=== PATIENT | female | born 1935 | race Caucasian/White ===

== ENCOUNTER → 2016-10-27 | Outpatient (CLI) | payer OTHER ==
[~2016-10-27] MED LIST: ALLO100T PO; ATEN100T OR; FLU05NSL; GLIP-115 PO; LANTUS SC; LISI40TA OR; LORA-622 PO; METF-312 OR; NIFE10CA3 OR; NOR5T PO
[2016-10-27 10:09] LABS: Basophils # (auto) 0 uL; Basophils % (auto) 0.4 % (0.0-2.0); Eosinophils # (auto) 0.3 uL; Eosinophils % (auto) 4.2 % (0.0-7.0); Hematocrit 40.5 % (36.0-46.0); Hemoglobin 13.1 g/dL (12.2-16.2); Lymphocytes # (auto) 2.2 uL; Lymphocytes % (auto) 35.8 % (10.0-50.0); Mean Corpuscular Hemoglobin 30.3 pg (28.0-32.0); Mean Corpuscular Hgb Conc. 32.5 g/dL (32.0-36.0); Mean Corpuscular Volume 93.1 fL (80.0-100.0); Monocytes # (auto) 0.5 uL; Monocytes % (auto) 8.3 % (0.0-12.0); Neutrophils # (auto) 3.2 uL; Neutrophils % (auto) 51.3 % (37.0-80.0); Platelet Count (auto) 271 10^3/uL (140-450); Red Cell Distribution Width 14.7 % (11.6-16.0); White Blood Cell 6.2 10^3/uL (4.4-10.8)
[2016-10-27 10:54] LABS: Albumin 3.9 g/dL (3.4-5.0); BUN/Creatinine Ratio 23.3; Bilirubin, Total 0.4 mg/dL (0.2-1.0); Total Protein 6.9 g/dL (6.4-8.2)
[2016-10-27 11:06] LABS: Urine Bilirubin Negative (Negative); Urine Color Yellow (Yellow); Urine Glucose Normal (Normal); Urine Ketone Negative (Negative); Urine Nitrite Negative (Negative); Urine RBC 109 /hpf (0 - 4); Urine Squamous Epithelial Cell FEW /hpf (<5); Urine Urobilinogen Normal (Negative); Urine WBC Clumps PRESENT /hpf (None Seen); Urine pH 5.5 (5.0-8.0)
[2016-10-27 11:44] LABS: Urine Blood 2+ /uL (Negative)
== END | disposition home or self-care (01) ==
LOC: LAB 08:22
PROVIDERS: ATTEND Internal Medicine
DX: Z00.00 Encounter for general adult medical examination without abnormal findings (principal); E55.9 Vitamin D deficiency, unspecified
CPT/HCPCS: 36415; 80053; 80061; 81001; 82043; 82306; 83036; 85025; 85049

== ENCOUNTER → 2016-11-14 | Outpatient (CLI) | payer OTHER | END | disposition home or self-care (01) | LOC: LAB 10:06 | PROVIDERS: ATTEND Internal Medicine | DX: Z00.00 Encounter for general adult medical examination without abnormal findings (principal); E55.9 Vitamin D deficiency, unspecified | CPT/HCPCS: 82270 ==

== ENCOUNTER → 2016-12-25 | Outpatient (CLI) | payer OTHER ==
[2016-12-25 11:45] LABS: Albumin 3.9 g/dL (3.4-5.0); BUN/Creatinine Ratio 24.8; Bilirubin, Total 0.4 mg/dL (0.2-1.0); Calcium 9.3 mg/dL (8.5-10.1); Magnesium 2.3 mg/dL (1.6-2.6); Potassium 4.7 mmol/L (3.5-5.1)
== END | disposition home or self-care (01) ==
LOC: LAB 09:48
PROVIDERS: ATTEND Internal Medicine
DX: I10 Essential (primary) hypertension (principal); E78.2 Mixed hyperlipidemia; E11.21 Type 2 diabetes mellitus with diabetic nephropathy; E11.69 Type 2 diabetes mellitus with other specified complication
CPT/HCPCS: 36415; 80053; 83735; 84443

== ENCOUNTER → 2017-01-01 | Outpatient (CLI) | payer OTHER ==
[2017-01-01 18:45] LABS: Urine Bilirubin Negative (Negative); Urine Color PINK (Yellow); Urine Ketone Negative (Negative); Urine Nitrite Negative (Negative); Urine RBC 1112 /hpf (0 - 4); Urine Squamous Epithelial Cell FEW /hpf (<5); Urine Urobilinogen Normal (Negative); Urine pH 5.5 (5.0-8.0)
[2017-01-01 18:49] LABS: Urine Blood 3+ /uL (Negative); Urine Glucose 1+ mg/dL (Normal)
== END | disposition home or self-care (01) ==
LOC: LAB 15:29
PROVIDERS: ATTEND Internal Medicine
DX: I10 Essential (primary) hypertension (principal); E78.2 Mixed hyperlipidemia; E11.21 Type 2 diabetes mellitus with diabetic nephropathy; E11.69 Type 2 diabetes mellitus with other specified complication
CPT/HCPCS: 81001

== ENCOUNTER → 2017-01-08 | Outpatient (CLI) | payer OTHER | END | disposition home or self-care (01) | LOC: LAB 14:38 | PROVIDERS: ATTEND Internal Medicine | DX: N39.0 Urinary tract infection, site not specified (principal) | CPT/HCPCS: 87086 ==

== ENCOUNTER → 2017-01-09 | Outpatient (CLI) | payer OTHER | END | disposition home or self-care (01) | LOC: XYW 08:55 | PROVIDERS: ATTEND Internal Medicine | DX: I08.3 Combined rheumatic disorders of mitral, aortic and tricuspid valves (principal) | CPT/HCPCS: 93306 ==

== ENCOUNTER 2017-01-14 12:32 | Inpatient (IN) | payer OTHER ==
[~2017-01-14] VITALS: Ht 170.2 cm; Wt 72.8 kg
[~2017-01-14 12:32] MED LIST changes: -LISI40TA OR; +LISI40TA PO; -METF-312 OR; +METF-312 PO; -NIFE10CA3 OR; +NIFE10CA3 PO
[2017-01-14] MEDS ORDERED: ASPirin 81 mg TAB ONE (13:07)
[2017-01-14] MEDS ORDERED: SODIUM CHLORIDE 0.9% 250 ML IV ONE (13:15)
[2017-01-14 13:22] LABS: Basophils # (auto) 0 uL; Basophils % (auto) 0.2 % (0.0-2.0); Eosinophils # (auto) 0.1 uL; Eosinophils % (auto) 1.4 % (0.0-7.0); Hematocrit 41.9 % (36.0-46.0); Hemoglobin 14.2 g/dL (12.2-16.2); Lymphocytes # (auto) 2.1 uL; Lymphocytes % (auto) 25.4 % (10.0-50.0); Mean Corpuscular Hemoglobin 30.9 pg (28.0-32.0); Mean Corpuscular Hgb Conc. 33.8 g/dL (32.0-36.0); Mean Corpuscular Volume 91.6 fL (80.0-100.0); Mean Platelet Volume 8.3 fL (7.4-10.4); Monocytes # (auto) 0.5 uL; Monocytes % (auto) 6.5 % (0.0-12.0); Neutrophils # (auto) 5.6 uL; Neutrophils % (auto) 66.5 % (37.0-80.0); Platelet Count (auto) 315 10^3/uL (140-450); White Blood Cell 8.5 10^3/uL (4.4-10.8)
[2017-01-14] MEDS ORDERED: ASPirin 81 mg TAB PO ONE (13:30)
[2017-01-14 13:54] LABS: Albumin 4.3 g/dL (3.4-5.0); Alkaline Phosphatase 116 U/L (45-117); Anion Gap 12 (5-15); Aspartate Aminotransferase 19 U/L (15-37); BUN/Creatinine Ratio 25.5; Bilirubin, Total 0.3 mg/dL (0.2-1.0); Blood Urea Nitrogen 28 mg/dL (7-18); Calcium 9.4 mg/dL (8.5-10.1); Carbon Dioxide 20 mmol/L (21-32); Chloride 111 mmol/L (98-107); GFR African American 62 mL/min; GFR Non-African American 51 mL/min; Glucose 155 mg/dL (74-106); Magnesium 1.6 mg/dL (1.6-2.6); Potassium 4.5 mmol/L (3.5-5.1); Sodium 143 mmol/L (136-145); Total Protein 7.6 g/dL (6.4-8.2)
[2017-01-14] MEDS ORDERED: ALUM & MAG HYDROX-SIMETH LIQ(MAALOX) 30 ML PO PRN (16:30)
[2017-01-14] MEDS ORDERED: ONDANSETRON HCL 4 MG/2 ML VIAL IV PRN (16:30)
[2017-01-14] MEDS ORDERED: MORPHINE SULF INJ 2 MG/ML SYRINGE 1ML IV PRN ×2 (16:30)
[2017-01-14] MEDS ORDERED: ZOLPIDEM TARTRATE 5 MG TAB PO PRN (16:30)
[2017-01-14] MEDS ORDERED: LORazepam 0.5 MG TAB PO PRN (16:30)
[2017-01-14] MEDS ORDERED: NITROGLYCERIN 0.4 MG SL TAB SL PRN ×2 (16:30)
[2017-01-14] MEDS ORDERED: DEXTROSE (50%) 50ML SYRG IV PRN (16:30)
[2017-01-14] MEDS ORDERED: ACETAMINOPHEN 325 MG TAB PO PRN (16:30)
[2017-01-14] MEDS ORDERED: ALLOPURINOL 100 MG TAB PO ONE (16:45)
[2017-01-14] MEDS ORDERED: CHOLECALCIFEROL (VITD3) 1,000 UNIT TAB PO ONE (16:45)
[2017-01-14] MEDS ORDERED: NIFEdipine ER 30 MG TAB PO ONE (16:45)
[2017-01-14] MEDS ORDERED: glipiZIDE 5 MG TAB PO ONE (16:45)
[2017-01-14] MEDS ORDERED: LISINOPRIL 20 MG TAB PO ONE (16:45)
[2017-01-14 16:56] LABS: Urine Bilirubin Negative (Negative); Urine Blood Negative /uL (Negative); Urine Color Yellow (Yellow); Urine Glucose Normal (Normal); Urine Hyaline Cast FEW /lpf (0 - 2); Urine Ketone Negative (Negative); Urine Mucus FEW (None Seen); Urine Nitrite Negative (Negative); Urine RBC 1 /hpf (0 - 4); Urine Squamous Epithelial Cell FEW /hpf (<5); Urine Urobilinogen Normal (Negative)
[2017-01-14 17:06] LABS: B-Type Natriuretic Peptide 87.13 pg/mL (0-100); Temperature: 23.4 C (20.0-25.0)
[2017-01-14] MEDS: DOCUSATE SOD 100 MG CAP PO SCH (17:36)
[2017-01-14] MEDS: InsuLIN REG 1unit/0.01ml Soln (100units/ml) SC SCH ×2 (17:38→21:53)
[2017-01-14] MEDS: ACCU-CHEK COMFORT CURVE STRIP VI SCH ×2 (17:38→21:53)
[2017-01-14 17:50] VITALS: BP 132/69
[2017-01-14] MEDS ORDERED: INSLANTI SC (18:31)
[2017-01-14] MEDS ORDERED: ATOR10TA PO (18:33)
[2017-01-14] MEDS ORDERED: TRAV0.00 EACHEYE (18:33)
[2017-01-14] MEDS ORDERED: FENO54TA4 PO (18:33)
[2017-01-14 21:48] VITALS: BP 124/64
[2017-01-14] MEDS: SODIUM CHLOR 0.9% PF (SALINE LOCK) 10ML VIAL IV SCH (21:52)
[2017-01-14] MEDS: SULFAMETHOX W/TRIMETH(800/160MG) DS TAB PO SCH (21:52)
[2017-01-14] MEDS: ATENOLOL 50 MG TAB PO SCH (21:53)
[2017-01-14] MEDS ORDERED: ATORVASTATIN 20 MG TAB PO SCH (22:00)
[2017-01-15 04:44] VITALS: BP 112/58
[2017-01-15] MEDS: SODIUM CHLOR 0.9% PF (SALINE LOCK) 10ML VIAL IV SCH (05:46)
[2017-01-15] MEDS: InsuLIN REG 1unit/0.01ml Soln (100units/ml) SC SCH ×2 (06:36→12:27)
[2017-01-15] MEDS: ACCU-CHEK COMFORT CURVE STRIP VI SCH ×2 (06:36→12:28)
[2017-01-15] MEDS ORDERED: INSULIN DETEMIR(LEVEMIR) 1unit/0.01ml Soln (100units/ml) SC SCH (07:00)
[2017-01-15] MEDS ORDERED: glipiZIDE 5 MG TAB PO SCH (07:00)
[2017-01-15 07:06] LABS: Albumin 3.3 g/dL (3.4-5.0); Alkaline Phosphatase 84 U/L (45-117); Anion Gap 9 (5-15); Aspartate Aminotransferase 16 U/L (15-37); BUN/Creatinine Ratio 26.6; Bilirubin, Total 0.4 mg/dL (0.2-1.0); Blood Urea Nitrogen 25 mg/dL (7-18); Calcium 8.6 mg/dL (8.5-10.1); Carbon Dioxide 23 mmol/L (21-32); Chloride 111 mmol/L (98-107); Cholesterol 221 mg/dL (< 200); GFR African American 74 mL/min; GFR Non-African American 61 mL/min; Glucose 104 mg/dL (74-106); HDL Cholesterol 39 mg/dL (40-59); LDL Cholesterol 156 mg/dL (< 100); Magnesium 1.6 mg/dL (1.6-2.6); Potassium 4.2 mmol/L (3.5-5.1); Sodium 143 mmol/L (136-145); Total Protein 6.2 g/dL (6.4-8.2); Triglycerides 217 mg/dL (< 150)
[2017-01-15 07:24] LABS: Basophils # (auto) 0 uL; Basophils % (auto) 0.4 % (0.0-2.0); Eosinophils # (auto) 0.2 uL; Eosinophils % (auto) 3.2 % (0.0-7.0); Hematocrit 36.1 % (36.0-46.0); Hemoglobin 12.4 g/dL (12.2-16.2); Lymphocytes # (auto) 2.1 uL; Lymphocytes % (auto) 27.7 % (10.0-50.0); Mean Corpuscular Hemoglobin 31.3 pg (28.0-32.0); Mean Corpuscular Hgb Conc. 34.4 g/dL (32.0-36.0); Mean Corpuscular Volume 91.1 fL (80.0-100.0); Monocytes # (auto) 0.7 uL; Monocytes % (auto) 9.5 % (0.0-12.0); Neutrophils # (auto) 4.5 uL; Neutrophils % (auto) 59.2 % (37.0-80.0); Platelet Count (auto) 288 10^3/uL (140-450); Red Cell Distribution Width 14.6 % (11.6-16.0); White Blood Cell 7.5 10^3/uL (4.4-10.8)
[2017-01-15 09:17] VITALS: BP 127/62
[2017-01-15] MEDS: DOCUSATE SOD 100 MG CAP PO SCH (09:46)
[2017-01-15] MEDS: SULFAMETHOX W/TRIMETH(800/160MG) DS TAB PO SCH (09:46)
[2017-01-15] MEDS: ATENOLOL 50 MG TAB PO SCH (09:55)
[2017-01-15] MEDS ORDERED: LISINOPRIL 20 MG TAB PO SCH (10:00)
[2017-01-15] MEDS ORDERED: NIFEdipine ER 30 MG TAB PO SCH (10:00)
[2017-01-15] MEDS ORDERED: CHOLECALCIFEROL (VITD3) 1,000 UNIT TAB PO SCH (10:00)
[2017-01-15] MEDS ORDERED: ALLOPURINOL 100 MG TAB PO SCH (10:00)
[2017-01-15] MEDS ORDERED: ASPirin 81 mg TAB PO SCH (10:00)
[2017-01-15] MEDS ORDERED: FENOFIBRATE 48MG PO SCH (10:00)
[2017-01-15] MEDS ORDERED: CLOPIDOGREL BISULFATE 75 MG TAB PO SCH (10:00)
[2017-01-15 12:08] VITALS: BP 127/59
[2017-01-15 13:50] VITALS: BP 126/82
[2017-01-15] MEDS ORDERED: TRAVATAN Z EYE EACHEYE SCH (22:00)
== END 2017-01-15 15:25 | disposition home or self-care (01) | DRG 312 ==
LOC: ER 12:32 → TELE 12:33 → TELE-EAST 18:59
PROVIDERS: ADMIT Internal Medicine; ATTEND Family Medicine
DX: I95.1 Orthostatic hypotension (principal); D68.69 Other thrombophilia; I48.92 Unspecified atrial flutter; R07.89 Other chest pain; Z96.652 Presence of left artificial knee joint; E10.21 Type 1 diabetes mellitus with diabetic nephropathy; E10.22 Type 1 diabetes mellitus with diabetic chronic kidney disease; E78.5 Hyperlipidemia, unspecified; I12.9 Hypertensive chronic kidney disease with stage 1 through stage 4 chronic kidney disease, or unspecified chronic kidney disease; I48.91 Unspecified atrial fibrillation; N18.3 Chronic kidney disease, stage 3 (moderate); Z83.3 Family history of diabetes mellitus; Z88.5 Allergy status to narcotic agent; Z88.0 Allergy status to penicillin; Z88.8 Allergy status to other drugs, medicaments and biological substances; Z79.4 Long term (current) use of insulin; Z90.710 Acquired absence of both cervix and uterus; Z90.89 Acquired absence of other organs; Z98.49 Cataract extraction status, unspecified eye; Z79.82 Long term (current) use of aspirin
CPT/HCPCS: 36415; 71020; 80053; 80061; 81001; 82962; 83036; 83735; 83880; 84443; 84484; 85025; 87086; 93005; 96360; J1815

== ENCOUNTER 2017-01-21 02:19 | Inpatient (IN) | payer OTHER ==
[~2017-01-21] VITALS: Ht 170.2 cm; Wt 75.9 kg
[~2017-01-21 02:19] MED LIST changes: -ATEN100T OR; +ATOR10TA PO; +FENO54TA4 PO; -FLU05NSL; +INSLANTI SC; -LANTUS SC; -LORA-622 PO; -NOR5T PO; +TRAV0.00 EACHEYE
[2017-01-21 03:13] LABS: Basophils # (auto) 0 uL; Basophils % (auto) 0.4 % (0.0-2.0); Eosinophils # (auto) 0.3 uL; Eosinophils % (auto) 3.5 % (0.0-7.0); Hematocrit 40.2 % (36.0-46.0); Hemoglobin 13.3 g/dL (12.2-16.2); Lymphocytes # (auto) 3.6 uL; Lymphocytes % (auto) 46.8 % (10.0-50.0); Mean Corpuscular Hemoglobin 30.7 pg (28.0-32.0); Mean Corpuscular Hgb Conc. 33.2 g/dL (32.0-36.0); Mean Corpuscular Volume 92.5 fL (80.0-100.0); Mean Platelet Volume 8.9 fL (7.4-10.4); Monocytes # (auto) 0.7 uL; Monocytes % (auto) 8.6 % (0.0-12.0); Neutrophils # (auto) 3.1 uL; Neutrophils % (auto) 40.7 % (37.0-80.0); Platelet Count (auto) 299 10^3/uL (140-450); Red Cell Distribution Width 14.6 % (11.6-16.0); White Blood Cell 7.6 10^3/uL (4.4-10.8)
[2017-01-21 03:28] LABS: INR 0.94 (0.9-1.15); Partial Thromboplastin Time 25.2 sec (22.64-33.71); Prothrombin Time 10.1 sec (9.37-12.3)
[2017-01-21 03:32] LABS: Albumin 3.7 g/dL (3.4-5.0); Anion Gap 12 (5-15); Aspartate Aminotransferase 15 U/L (15-37); BUN/Creatinine Ratio 31.3; Blood Urea Nitrogen 36 mg/dL (7-18); Carbon Dioxide 21 mmol/L (21-32); Chloride 108 mmol/L (98-107); GFR African American 59 mL/min; GFR Non-African American 48 mL/min; Glucose 128 mg/dL (74-106); Magnesium 2.3 mg/dL (1.6-2.6); Potassium 4.3 mmol/L (3.5-5.1); Sodium 141 mmol/L (136-145)
[2017-01-21 03:37] LABS: Alkaline Phosphatase 128 U/L (45-117); Bilirubin, Total 0.3 mg/dL (0.2-1.0); Total Protein 6.9 g/dL (6.4-8.2)
[2017-01-21 03:40] LABS: B-Type Natriuretic Peptide 96.5 pg/mL (0-100); Temperature: 21.4 C (20.0-25.0)
[2017-01-21] MEDS: SODIUM CHLORIDE 0.9% 1,000 ML IV SCH ×2 (05:20→22:31)
[2017-01-21] MEDS ORDERED: ONDANSETRON HCL 4 MG/2 ML VIAL IV PRN (05:30)
[2017-01-21] MEDS ORDERED: MORPHINE SULF INJ 2 MG/ML SYRINGE 1ML IV PRN ×2 (05:30)
[2017-01-21] MEDS ORDERED: HYDROcodone-ACET 5/325MG TAB PO PRN (05:30)
[2017-01-21] MEDS ORDERED: NITROGLYCERIN 0.4 MG SL TAB SL PRN (05:30)
[2017-01-21] MEDS ORDERED: DIPHENOXYLATE W/ATROPINE 2.5 MG TAB PO ONE (05:45)
[2017-01-21 06:35] VITALS: BP 137/63
[2017-01-21 07:28] VITALS: BP 137/63
[2017-01-21] MEDS: NIFEdipine ER 30 MG TAB PO SCH (09:59)
[2017-01-21] MEDS: ALLOPURINOL 100 MG TAB PO SCH (09:59)
[2017-01-21] MEDS ORDERED: NIFEdipine 10 MG CAP PO SCH (10:00)
[2017-01-21] MEDS ORDERED: TRAVOPROST 0.004% EACHEYE SCH (10:00)
[2017-01-21] MEDS: [UNRECOGNIZED DRUG - OTHER] PO SCH (10:00)
[2017-01-21] MEDS: FENOFIBRATE 54 MG PO SCH (10:00)
[2017-01-21] MEDS ORDERED: FENOFIBRATE 54 MG PO SCH (10:00)
[2017-01-21 11:00] VITALS: BP 122/72
[2017-01-21 12:48] LABS: Urine Bilirubin Negative (Negative); Urine Blood Negative /uL (Negative); Urine Color Colorless (Yellow); Urine Ketone Negative (Negative); Urine Nitrite Negative (Negative); Urine RBC <1 /hpf (0 - 4); Urine Urobilinogen Normal (Negative); Urine pH 6.5 (5.0-8.0)
[2017-01-21 12:49] LABS: Urine Glucose 3+ mg/dL (Normal)
[2017-01-21 16:00] VITALS: BP 128/63
[2017-01-21] MEDS ORDERED: DEXTROSE (50%) 50ML SYRG IV PRN (16:45)
[2017-01-21] MEDS: ACCU-CHEK COMFORT CURVE STRIP VI SCH ×2 (18:10→22:00)
[2017-01-21] MEDS: InsuLIN REG 1unit/0.01ml Soln (100units/ml) SC SCH ×2 (18:14→22:41)
[2017-01-21 22:00] VITALS: BP 115/62
[2017-01-21] MEDS ORDERED: LISINOPRIL 20 MG TAB PO SCH (22:00)
[2017-01-21] MEDS: ATORVASTATIN 20 MG TAB PO SCH (22:30)
[2017-01-22] VITALS (7 sets, daily range): BP systolic 115–138; BP diastolic 61–73
[2017-01-22] MEDS: InsuLIN REG 1unit/0.01ml Soln (100units/ml) SC SCH ×4 (05:57→22:15)
[2017-01-22] MEDS: ACCU-CHEK COMFORT CURVE STRIP VI SCH ×4 (05:57→22:14)
[2017-01-22 06:05] LABS: Basophils # (auto) 0 uL; Basophils % (auto) 0.3 % (0.0-2.0); Eosinophils # (auto) 0.3 uL; Eosinophils % (auto) 3.6 % (0.0-7.0); Hematocrit 42.3 % (36.0-46.0); Hemoglobin 13.8 g/dL (12.2-16.2); Lymphocytes # (auto) 2.9 uL; Lymphocytes % (auto) 40.9 % (10.0-50.0); Mean Corpuscular Hemoglobin 30.5 pg (28.0-32.0); Mean Corpuscular Hgb Conc. 32.7 g/dL (32.0-36.0); Mean Corpuscular Volume 93.1 fL (80.0-100.0); Mean Platelet Volume 8.8 fL (7.4-10.4); Monocytes # (auto) 0.7 uL; Monocytes % (auto) 10.1 % (0.0-12.0); Neutrophils # (auto) 3.2 uL; Neutrophils % (auto) 45.1 % (37.0-80.0); Platelet Count (auto) 301 10^3/uL (140-450); Red Cell Distribution Width 15.2 % (11.6-16.0); White Blood Cell 7.1 10^3/uL (4.4-10.8)
[2017-01-22 06:41] LABS: Albumin 3.5 g/dL (3.4-5.0); BUN/Creatinine Ratio 24.3; Bilirubin, Total 0.4 mg/dL (0.2-1.0); Potassium 4.3 mmol/L (3.5-5.1); Total Protein 6.8 g/dL (6.4-8.2)
[2017-01-22] MEDS: [UNRECOGNIZED DRUG - OTHER] PO SCH (09:35)
[2017-01-22] MEDS: FENOFIBRATE 54 MG PO SCH (09:35)
[2017-01-22] MEDS: NIFEdipine ER 30 MG TAB PO SCH (09:39)
[2017-01-22] MEDS: ALLOPURINOL 100 MG TAB PO SCH (09:39)
[2017-01-22] MEDS ORDERED: METOPROLOL TARTRATE 25 MG TAB PO ONE (10:30)
[2017-01-22] MEDS ORDERED: APIXABAN 5 MG TAB PO SCH (11:00)
[2017-01-22] MEDS ORDERED: LATANOPROST 0.005 % OPTH(EYE) SOL 2.5ML EACHEYE SCH (22:00)
[2017-01-22] MEDS ORDERED: LISINOPRIL 20 MG TAB PO SCH (22:00)
[2017-01-22] MEDS: ATORVASTATIN 20 MG TAB PO SCH (22:24)
[2017-01-22] MEDS: METOPROLOL TARTRATE 25 MG TAB PO SCH (22:25)
[2017-01-22] MEDS: TRAVOPROST 0.004% EACHEYE SCH (22:26)
[2017-01-22] MEDS: EYE EACHEYE SCH (22:26)
[2017-01-23] MEDS ORDERED: TEMAZEPAM 15 MG CAP PO ONE (00:45)
[2017-01-23 05:00] VITALS: BP 121/66
[2017-01-23] MEDS: ACCU-CHEK COMFORT CURVE STRIP VI SCH ×4 (05:39→21:57)
[2017-01-23] MEDS: InsuLIN REG 1unit/0.01ml Soln (100units/ml) SC SCH ×4 (05:56→21:57)
[2017-01-23 07:11] LABS: BUN/Creatinine Ratio 23.4; Calcium 9.2 mg/dL (8.5-10.1); Potassium 4.4 mmol/L (3.5-5.1)
[2017-01-23 08:00] VITALS: BP 114/66
[2017-01-23 08:49] VITALS: BP 114/66
[2017-01-23] MEDS: FENOFIBRATE 48 MG TAB PO SCH (09:30)
[2017-01-23] MEDS: ALLOPURINOL 100 MG TAB PO SCH (09:32)
[2017-01-23] MEDS: METOPROLOL TARTRATE 25 MG TAB PO SCH ×2 (09:32→21:57)
[2017-01-23] MEDS ORDERED: IOHEXOL 350 MG/ML 100ML IJ ONE (10:46)
[2017-01-23] MEDS ORDERED: LIDOCAINE 2%HCL (LOCAL ANESTH.) INJ 20ML MDV ONE (10:46)
[2017-01-23] MEDS ORDERED: MIDAZOLAM HCL 1MG/1ML-2 ML VIAL ONE (11:30)
[2017-01-23] MEDS ORDERED: fentaNYL CITRATE 100 MCG/2 ML VL ONE (11:30)
[2017-01-23] MEDS ORDERED: SODIUM CHL 0.9% 0 ML ONE (11:30)
[2017-01-23] MEDS ORDERED: ANGIOMAX 250 MG VIAL IV ONE (11:30)
[2017-01-23] MEDS ORDERED: VERAPAMIL 2.5MG/ML INJ 2ML VIAL IV ONE (11:58)
[2017-01-23] MEDS ORDERED: HEPARIN 1,000 UNITS/ml 1ML VIAL ONE (12:03)
[2017-01-23 17:00] VITALS: BP 125/82
[2017-01-23 20:00] VITALS: BP 132/81
[2017-01-23] MEDS: ATORVASTATIN 20 MG TAB PO SCH (21:56)
[2017-01-23] MEDS: TRAVOPROST 0.004% EACHEYE SCH (21:57)
[2017-01-23] MEDS: EYE EACHEYE SCH (21:57)
[2017-01-23 22:00] VITALS: BP 132/81
[2017-01-23] MEDS ORDERED: LISINOPRIL 20 MG TAB PO SCH (22:00)
[2017-01-24 05:00] VITALS: BP 113/65
[2017-01-24] MEDS: ACCU-CHEK COMFORT CURVE STRIP VI SCH ×4 (06:07→21:32)
[2017-01-24] MEDS: InsuLIN REG 1unit/0.01ml Soln (100units/ml) SC SCH ×4 (06:07→21:33)
[2017-01-24 07:05] LABS: Calcium 8.8 mg/dL (8.5-10.1); Potassium 4.3 mmol/L (3.5-5.1)
[2017-01-24 07:09] LABS: BUN/Creatinine Ratio 22.6
[2017-01-24 09:05] VITALS: BP 129/72
[2017-01-24] MEDS: ALLOPURINOL 100 MG TAB PO SCH (09:36)
[2017-01-24] MEDS: LISINOPRIL 10 MG TAB PO SCH (09:36)
[2017-01-24] MEDS: FENOFIBRATE 48 MG TAB PO SCH (09:38)
[2017-01-24] MEDS: METOPROLOL TARTRATE 25 MG TAB PO SCH ×2 (09:38→21:30)
[2017-01-24 17:01] VITALS: BP 114/73
[2017-01-24] MEDS: EYE EACHEYE SCH (21:31)
[2017-01-24] MEDS: ATORVASTATIN 20 MG TAB PO SCH (21:31)
[2017-01-24] MEDS: TRAVOPROST 0.004% EACHEYE SCH (21:31)
[2017-01-24 22:00] VITALS: BP 139/66
[2017-01-25] VITALS (16 sets, daily range): BP systolic 107–159; BP diastolic 52–99
[2017-01-25] MEDS: ACCU-CHEK COMFORT CURVE STRIP VI SCH ×4 (06:47→22:00)
[2017-01-25] MEDS: InsuLIN REG 1unit/0.01ml Soln (100units/ml) SC SCH ×4 (06:48→22:47)
[2017-01-25] MEDS: FENOFIBRATE 48 MG TAB PO SCH (09:34)
[2017-01-25] MEDS: LISINOPRIL 10 MG TAB PO SCH (09:35)
[2017-01-25] MEDS: ALLOPURINOL 100 MG TAB PO SCH (09:35)
[2017-01-25] MEDS: METOPROLOL TARTRATE 25 MG TAB PO SCH ×2 (09:35→22:43)
[2017-01-25] MEDS ORDERED: ASPI-498 PO (10:23)
[2017-01-25] MEDS ORDERED: MUPIROCIN 2% OINT 22GM TOP SCH (21:00)
[2017-01-25] MEDS ORDERED: ASCORBIC ACID 500 MG TAB PO ONE (21:00)
[2017-01-25] MEDS: TRAVOPROST 0.004% EACHEYE SCH (22:00)
[2017-01-25] MEDS: EYE EACHEYE SCH (22:00)
[2017-01-25] MEDS ORDERED: CHLORHEXIDINE 0.12% ORAL rinse 473ML MT ONE (22:27)
[2017-01-25] MEDS: ATORVASTATIN 20 MG TAB PO SCH (22:42)
[2017-01-26] VITALS (53 sets, daily range): BP systolic 22–168; BP diastolic 7–89
[2017-01-26] MEDS ORDERED: CHLORHEXIDINE 4% TOPICAL soln 473ML TOP ONE (03:00)
[2017-01-26 04:03] LABS: INR 0.99 (0.9-1.15); Partial Thromboplastin Time 24.3 sec (22.64-33.71); Prothrombin Time 10.7 sec (9.37-12.3)
[2017-01-26 04:17] LABS: BUN/Creatinine Ratio 28.4; Calcium 8.7 mg/dL (8.5-10.1); Potassium 4.2 mmol/L (3.5-5.1)
[2017-01-26 04:37] LABS: Basophils # (auto) 0 uL; Basophils % (auto) 0.4 % (0.0-2.0); Eosinophils # (auto) 0.2 uL; Eosinophils % (auto) 2.9 % (0.0-7.0); Hematocrit 42.9 % (36.0-46.0); Hemoglobin 14.1 g/dL (12.2-16.2); Lymphocytes # (auto) 3.1 uL; Lymphocytes % (auto) 38.2 % (10.0-50.0); Mean Corpuscular Hemoglobin 30.6 pg (28.0-32.0); Mean Corpuscular Volume 92.8 fL (80.0-100.0); Mean Platelet Volume 8.8 fL (7.4-10.4); Monocytes # (auto) 0.8 uL; Monocytes % (auto) 9.7 % (0.0-12.0); Neutrophils % (auto) 48.8 % (37.0-80.0); Platelet Count (auto) 290 10^3/uL (140-450); Red Cell Distribution Width 14.9 % (11.6-16.0); White Blood Cell 8.1 10^3/uL (4.4-10.8)
[2017-01-26] MEDS: InsuLIN REG 1unit/0.01ml Soln (100units/ml) SC SCH (05:49)
[2017-01-26] MEDS ORDERED: CHLORHEXIDINE 0.12% ORAL rinse 473ML MT ONE (06:00)
[2017-01-26] MEDS ORDERED: NEOMYCIN-BACITRACIN-POLYM 15GM TOP OINT TOP ONE (06:55)
[2017-01-26] MEDS ORDERED: ceFAZolin 1GM VL ONE (06:55)
[2017-01-26] MEDS ORDERED: PAPAVERINE HCL 60 MG/2 ML 2ML VIAL ONE (06:56)
[2017-01-26] MEDS ORDERED: HEPARIN 1,000 UNITS/ml 1ML VIAL ONE (06:56)
[2017-01-26] MEDS ORDERED: ACCU-CHEK COMFORT CURVE STRIP VI ONE (07:00)
[2017-01-26] MEDS ORDERED: VASOPRESSIN 50 UNITS in SODIUM CHL 0.9% 247.5 ML IV ONE (07:00)
[2017-01-26] MEDS ORDERED: EPINEPHrine HCL 4 MG in D5W 5% 250 ML IM ONE (07:00)
[2017-01-26] MEDS ORDERED: AMINOCAPROIC ACID 10 GM in SODIUM CHL 0.9% 100 ML IV ONE (07:00)
[2017-01-26] MEDS ORDERED: PHENYLEPHRINE INJ 20 MG in SODIUM CHL 0.9% 250 ML IV ONE (07:00)
[2017-01-26] MEDS ORDERED: InsuLIN R (HUMAN) 100 UNITS in SODIUM CHL 0.9% 99 ML IV ONE (07:00)
[2017-01-26] MEDS ORDERED: AMINOCAPROIC ACID 5 GM in SODIUM CHL 0.9% 250 ML IV ONE (07:00)
[2017-01-26] MEDS ORDERED: HEPARIN 30000 UNITS in SODIUM CHLORIDE 0.9% 1000 ML IV ONE (07:00)
[2017-01-26] MEDS ORDERED: ALBUMIN 25% 200 ML IV ONE (07:45)
[2017-01-26] MEDS ORDERED: ceFAZolin 1GM/50ML D5W 50 ML IV ONE (08:00)
[2017-01-26] MEDS ORDERED: VANCOMYCIN 1GM/250ML D5W 250 ML IV ONE (08:00)
[2017-01-26] MEDS ORDERED: PLASMA-LYTE A pH7.4 5,000 ML INJ ONE (08:33)
[2017-01-26] MEDS ORDERED: ROCURONIUM 10MG/ML 10ML VIAL IV ONE ×2 (08:56→10:44)
[2017-01-26] MEDS ORDERED: CALCIUM CHLOR(10%) 100MG/ML 10ML SYRINGE IV ONE ×2 (09:07→15:59)
[2017-01-26] MEDS ORDERED: NITROGLYCERIN 50MG/250ML 250 ML IV ONE (09:07)
[2017-01-26] MEDS ORDERED: LIDOCAINE 2%HCL (LOCAL ANESTH.) INJ 20ML MDV ONE (09:17)
[2017-01-26] MEDS ORDERED: ETOMIDATE (2MG/ML) 20ML VIAL IV ONE (09:17)
[2017-01-26] MEDS ORDERED: MIDAZOLAM HCL 1MG/1ML-2 ML VIAL ONE ×2 (09:19→09:20)
[2017-01-26] MEDS ORDERED: ePHEDrine SULFATE 50 MG/ML AMP ONE (09:19)
[2017-01-26] MEDS ORDERED: DILTIAZEM HCL 25 MG/5 ML VIAL IV ONE (14:00)
[2017-01-26] MEDS ORDERED: AMIODARONE HCL (50 MG/ ML) 3 ML VIAL IV ONE (14:11)
[2017-01-26] MEDS: DILTIAZEM 125mg/125ml BAG KIT 125 ML IV SCH (14:15)
[2017-01-26] MEDS: FENOFIBRATE 48 MG TAB PO SCH (14:28)
[2017-01-26] MEDS: ALLOPURINOL 100 MG TAB PO SCH (14:28)
[2017-01-26] MEDS ORDERED: AMIODARONE HCL 900 MG in DEXTROSE 500 ML IV SCH ×2 (14:37→15:01)
[2017-01-26] MEDS ORDERED: PHENYLEPHRINE IV 250 ML IV SCH (14:51)
[2017-01-26] MEDS ORDERED: SODIUM CHLORIDE 0.9% 200 ML IV PRN (14:51)
[2017-01-26] MEDS ORDERED: INSULIN DRIP 100 UNIT/100ML 100 ML IV SCH (14:51)
[2017-01-26] MEDS ORDERED: NOREPINEPHRINE BITARTRATE 250 ML IV SCH (14:51)
[2017-01-26] MEDS ORDERED: DEXTROSE (50%) 50ML SYRG IV PRN (15:00)
[2017-01-26] MEDS ORDERED: SODIUM BICARBONATE 8.4% INJ 50ML SYRINGE IV PRN (15:00)
[2017-01-26] MEDS ORDERED: IPRATROPIUM BROM 0.5 MG/2.5ML INH SOL NEB PRN (15:00)
[2017-01-26] MEDS ORDERED: MAGNESIUM SULFATE 1GM/100ML 100 ML IV PRN (15:00)
[2017-01-26] MEDS ORDERED: AMIODARONE HCL 150 MG in D5W 5% 100 ML IV ONE (15:00)
[2017-01-26] MEDS ORDERED: METOCLOPRAMIDE HCL 5MG/ml INJ 2ml VIAL IV PRN (15:00)
[2017-01-26] MEDS ORDERED: ONDANSETRON HCL 4 MG/2 ML VIAL IV PRN (15:00)
[2017-01-26] MEDS ORDERED: MORPHINE SULFATE 4 MG/ML SYRG IV PRN (15:00)
[2017-01-26] MEDS ORDERED: DIGOXIN (250MCG/ML) 2 ML AMPULE IV ONE (15:30)
[2017-01-26] MEDS ORDERED: PHENYLEPHRINE HCL 10 MG/ML VL IV ONE (15:59)
[2017-01-26] MEDS ORDERED: AMINOCAPROIC ACID 5 GM/20 ML VL IV ONE (15:59)
[2017-01-26] MEDS ORDERED: ADENOSINE 6 MG/2 ML INJ IV ONE (15:59)
[2017-01-26] MEDS ORDERED: POTASSIUM CHL 2MEQ/ML 20ML IV ONE (15:59)
[2017-01-26] MEDS ORDERED: SODIUM BICARBONATE 8.4 % INJ 50ML VIAL IV ONE (15:59)
[2017-01-26] MEDS ORDERED: MAGNESIUM SULF 50% 40 MEQ/10 ML VL IV ONE (15:59)
[2017-01-26] MEDS ORDERED: MANNITOL 20 % (20GM/100ML) SOLN 500ML IV ONE (15:59)
[2017-01-26] MEDS ORDERED: LIDOCAINE HCL 100 MG/5ML (2%) SYRG INJ IV ONE (15:59)
[2017-01-26] MEDS: SODIUM CHLORIDE 0.9% 1,000 ML IV SCH ×2 (16:00→21:31)
[2017-01-26] MEDS: ACCU-CHEK COMFORT CURVE STRIP VI SCH ×8 (16:00→22:42)
[2017-01-26] MEDS: SODIUM CHLORIDE 0.9% 500 ML IV SCH (16:00)
[2017-01-26] MEDS: PROPOFOL 100 ML IV SCH (16:00)
[2017-01-26] MEDS: ALBUMIN 5% 250 ML IV PRN ×3 (16:30→21:17)
[2017-01-26] MEDS: VANCOMYCIN 1GM/250ML D5W 250 ML IV SCH (17:02)
[2017-01-26 17:40] LABS: Basophils # (auto) 0 uL; Basophils % (auto) 0.1 % (0.0-2.0); Eosinophils # (auto) 0 uL; Eosinophils % (auto) 0.1 % (0.0-7.0); Hematocrit 32.2 % (36.0-46.0); Hemoglobin 10.7 g/dL (12.2-16.2); Lymphocytes # (auto) 1.2 uL; Lymphocytes % (auto) 9.7 % (10.0-50.0); Mean Corpuscular Hemoglobin 30.8 pg (28.0-32.0); Mean Corpuscular Hgb Conc. 33.2 g/dL (32.0-36.0); Mean Corpuscular Volume 92.7 fL (80.0-100.0); Mean Platelet Volume 8.7 fL (7.4-10.4); Monocytes # (auto) 0.7 uL; Monocytes % (auto) 5.4 % (0.0-12.0); Neutrophils # (auto) 10.8 uL; Neutrophils % (auto) 84.7 % (37.0-80.0); Platelet Count (auto) 218 10^3/uL (140-450); Red Cell Distribution Width 14.8 % (11.6-16.0); White Blood Cell 12.7 10^3/uL (4.4-10.8)
[2017-01-26 17:47] LABS: INR 1.04 (0.9-1.15); Partial Thromboplastin Time 22.6 sec (22.64-33.71); Prothrombin Time 11.2 sec (9.37-12.3)
[2017-01-26] MEDS: ceFAZolin 1GM 2 GM in D5W 5% 100 ML IV SCH ×2 (17:56→22:45)
[2017-01-26] MEDS: MILRINONE 20MG/100ML 100 ML IV SCH (18:01)
[2017-01-26] MEDS: NICARDIPINE 25MG/250ML BAG KIT 250 ML IV SCH ×2 (18:02→19:51)
[2017-01-26 18:13] LABS: Albumin 3.5 g/dL (3.4-5.0); BUN/Creatinine Ratio 24.2; Calcium 9.4 mg/dL (8.5-10.1); Magnesium 3.4 mg/dL (1.6-2.6); Phosphorus 4.1 mg/dL (2.5-4.90); Potassium 4.5 mmol/L (3.5-5.1); Total Protein 5.3 g/dL (6.4-8.2)
[2017-01-26 20:30] LABS: Basophils # (auto) 0 uL; Basophils % (auto) 0.1 % (0.0-2.0); Eosinophils # (auto) 0 uL; Eosinophils % (auto) 0.1 % (0.0-7.0); Hematocrit 28.6 % (36.0-46.0); Hemoglobin 9.5 g/dL (12.2-16.2); Lymphocytes # (auto) 0.7 uL; Lymphocytes % (auto) 6.1 % (10.0-50.0); Mean Corpuscular Hemoglobin 30.9 pg (28.0-32.0); Mean Corpuscular Hgb Conc. 33.2 g/dL (32.0-36.0); Mean Corpuscular Volume 93.1 fL (80.0-100.0); Mean Platelet Volume 8.9 fL (7.4-10.4); Monocytes # (auto) 0.9 uL; Monocytes % (auto) 8.3 % (0.0-12.0); Neutrophils # (auto) 9.2 uL; Neutrophils % (auto) 85.4 % (37.0-80.0); Platelet Count (auto) 195 10^3/uL (140-450); Red Cell Distribution Width 14.6 % (11.6-16.0); White Blood Cell 10.7 10^3/uL (4.4-10.8)
[2017-01-26 20:42] LABS: BUN/Creatinine Ratio 17.4; Calcium 8.9 mg/dL (8.5-10.1); Magnesium 2.9 mg/dL (1.6-2.6); Phosphorus 2.3 mg/dL (2.5-4.90)
[2017-01-26] MEDS: AMIODARONE HCL 900 MG in DEXTROSE 500 ML IV SCH (21:01)
[2017-01-26] MEDS: TRAVOPROST 0.004% EACHEYE SCH (21:49)
[2017-01-26] MEDS: EYE EACHEYE SCH (21:49)
[2017-01-26] MEDS: CHLORHEXIDINE 0.12% ORAL rinse 473ML MT SCH (21:49)
[2017-01-26] MEDS: MORPHINE SULFATE 4 MG/ML SYRG IV PRN (22:42)
[2017-01-27] VITALS (96 sets, daily range): BP systolic 20–154; BP diastolic 7–80
[2017-01-27] MEDS: AMIODARONE HCL 900 MG in DEXTROSE 500 ML IV SCH ×2
[2017-01-27 00:12] LABS: Potassium 3.6 mmol/L (3.5-5.1)
[2017-01-27 00:14] LABS: Magnesium 2.6 mg/dL (1.6-2.6)
[2017-01-27] MEDS: NICARDIPINE 25MG/250ML BAG KIT 250 ML IV SCH ×5 (00:51→23:30)
[2017-01-27] MEDS: ACCU-CHEK COMFORT CURVE STRIP VI SCH ×15 (01:00→14:16)
[2017-01-27] MEDS: POTASSIUM CHL 20MEQ/100ML 100 ML IV PRN ×3 (02:15→09:31)
[2017-01-27] MEDS: MORPHINE SULFATE 4 MG/ML SYRG IV PRN ×3 (02:15→11:25)
[2017-01-27] MEDS: VANCOMYCIN 1GM/250ML D5W 250 ML IV SCH ×2 (03:00→17:00)
[2017-01-27] MEDS: MILRINONE 20MG/100ML 100 ML IV SCH (03:28)
[2017-01-27 04:16] LABS: Basophils # (auto) 0 uL; Eosinophils # (auto) 0 uL; Hematocrit 27.4 % (36.0-46.0); Hemoglobin 9.2 g/dL (12.2-16.2); Lymphocytes # (auto) 1.1 uL; Lymphocytes % (auto) 11.5 % (10.0-50.0); Mean Corpuscular Hemoglobin 30.9 pg (28.0-32.0); Mean Corpuscular Hgb Conc. 33.6 g/dL (32.0-36.0); Mean Corpuscular Volume 91.8 fL (80.0-100.0); Mean Platelet Volume 8.7 fL (7.4-10.4); Monocytes # (auto) 0.9 uL; Monocytes % (auto) 9.4 % (0.0-12.0); Neutrophils # (auto) 7.4 uL; Neutrophils % (auto) 79.1 % (37.0-80.0); Platelet Count (auto) 182 10^3/uL (140-450); Red Cell Distribution Width 14.6 % (11.6-16.0); White Blood Cell 9.4 10^3/uL (4.4-10.8)
[2017-01-27] MEDS: PROPOFOL 100 ML IV SCH (04:23)
[2017-01-27 04:43] LABS: BUN/Creatinine Ratio 19.8; Calcium 8.7 mg/dL (8.5-10.1); Magnesium 2.6 mg/dL (1.6-2.6); Potassium 4.7 mmol/L (3.5-5.1)
[2017-01-27 05:07] LABS: Phosphorus 3.4 mg/dL (2.5-4.90)
[2017-01-27] MEDS ORDERED: FUROSEMIDE 20 MG/2 ML VIAL IV ONE (06:30)
[2017-01-27] MEDS: ALBUMIN 5% 250 ML IV PRN (06:43)
[2017-01-27] MEDS: SODIUM CHLORIDE 0.9% 1,000 ML IV SCH ×2 (07:24→14:33)
[2017-01-27] MEDS: ceFAZolin 1GM 2 GM in D5W 5% 100 ML IV SCH ×3 (07:30→23:09)
[2017-01-27] MEDS: DIGOXIN (250MCG/ML) 2 ML AMPULE IV SCH (09:24)
[2017-01-27] MEDS: ALLOPURINOL 100 MG TAB PO SCH (09:25)
[2017-01-27] MEDS: CHLORHEXIDINE 0.12% ORAL rinse 473ML MT SCH ×2 (09:25→22:00)
[2017-01-27] MEDS: FENOFIBRATE 48 MG TAB PO SCH (09:25)
[2017-01-27] MEDS ORDERED: PANTOPRAZOLE SODIUM 40 MG/10 ML VIAL IV SCH (10:00)
[2017-01-27] MEDS ORDERED: METOCLOPRAMIDE HCL 5MG/ml INJ 2ml VIAL IV PRN (12:15)
[2017-01-27] MEDS ORDERED: ONDANSETRON HCL 4 MG/2 ML VIAL IV PRN (12:15)
[2017-01-27] MEDS ORDERED: HYDROcodone-ACET 5/325MG TAB PO PRN (12:15)
[2017-01-27] MEDS ORDERED: DEXTROSE (50%) 50ML SYRG IV PRN (12:15)
[2017-01-27] MEDS ORDERED: SENNA 8.6 MG TAB PO PRN (12:15)
[2017-01-27] MEDS ORDERED: glipiZIDE 5 MG TAB PO ONE (12:30)
[2017-01-27] MEDS ORDERED: hydrALAZINE HCL 20 MG/ML VL IV PRN ×3 (12:30→21:15)
[2017-01-27] MEDS ORDERED: FUROSEMIDE 20 MG/2 ML VIAL IV PRN ×2 (12:45→21:15)
[2017-01-27] MEDS ORDERED: MORPHINE SULFATE 4 MG/ML SYRG IV PRN (12:45)
[2017-01-27] MEDS: PROPRANOLOL HCL 1 MG/ML VIAL IV PRN ×2 (13:08→13:10)
[2017-01-27] MEDS: InsuLIN REG 1unit/0.01ml Soln (100units/ml) SC SCH ×3 (14:00→22:00)
[2017-01-27] MEDS: IPRATROPIUM BROM 0.5 MG/2.5ML INH SOL NEB SCH ×2 (14:00→18:14)
[2017-01-27] MEDS: DILTIAZEM 125mg/125ml BAG KIT 125 ML IV SCH (14:15)
[2017-01-27 14:35] LABS: Basophils # (auto) 0 uL; Eosinophils # (auto) 0 uL; Hematocrit 26.7 % (36.0-46.0); Hemoglobin 8.9 g/dL (12.2-16.2); Lymphocytes # (auto) 0.9 uL; Lymphocytes % (auto) 7.1 % (10.0-50.0); Mean Corpuscular Hemoglobin 30.8 pg (28.0-32.0); Mean Corpuscular Hgb Conc. 33.5 g/dL (32.0-36.0); Mean Platelet Volume 8.8 fL (7.4-10.4); Neutrophils # (auto) 11.1 uL; Neutrophils % (auto) 84.9 % (37.0-80.0); Platelet Count (auto) 183 10^3/uL (140-450); Red Cell Distribution Width 15.3 % (11.6-16.0); SUSPECT VIEW TRANSMISSION; White Blood Cell 13.1 10^3/uL (4.4-10.8)
[2017-01-27] MEDS: SODIUM CHLORIDE 0.9% 500 ML IV SCH (14:50)
[2017-01-27 15:05] LABS: BUN/Creatinine Ratio 16.5; Calcium 7.9 mg/dL (8.5-10.1); Magnesium 2.1 mg/dL (1.6-2.6); Phosphorus 3.7 mg/dL (2.5-4.90)
[2017-01-27] MEDS: MORPHINE SULF INJ 2 MG/ML SYRINGE 1ML IV PRN (15:29)
[2017-01-27] MEDS ORDERED: METOPROLOL TARTRATE 25 MG TAB ONE (15:41)
[2017-01-27] MEDS ORDERED: METOPROLOL TARTRATE 25 MG TAB PO ONE (15:45)
[2017-01-27] MEDS: FUROSEMIDE 40 MG TAB PO SCH (15:50)
[2017-01-27] MEDS ORDERED: hydrALAZINE HCL 20 MG/ML VL ONE (17:13)
[2017-01-27] MEDS: Boost Glucose Control 8 Ounces PO SCH (18:44)
[2017-01-27] MEDS ORDERED: CALCIUM GLUC 4.65 MEQ/10ML IV ONE (20:25)
[2017-01-27] MEDS: ATORVASTATIN 20 MG TAB PO SCH (21:30)
[2017-01-27] MEDS: DOCUSATE SOD 100 MG CAP PO SCH (21:30)
[2017-01-27] MEDS: fentaNYL CITRATE 100 MCG/2 ML VL IV PRN (21:30)
[2017-01-27] MEDS: AMIODARONE HCL 200 MG TAB PO SCH (21:30)
[2017-01-27] MEDS: METOPROLOL TARTRATE 25 MG TAB PO SCH (21:31)
[2017-01-27] MEDS: ASCORBIC ACID 500 MG TAB PO SCH (21:31)
[2017-01-27] MEDS: INSULIN DETEMIR(LEVEMIR) 1unit/0.01ml Soln (100units/ml) SC SCH (21:34)
[2017-01-27] MEDS: NITROGLYCERIN 50MG/250ML 250 ML IV SCH (21:59)
[2017-01-27] MEDS ORDERED: METOPROLOL TARTRATE 25 MG TAB PO SCH (22:00)
[2017-01-27] MEDS: OXYCODONE W/ ACETAMINOPHEN 5/325MG TABLET PO PRN (22:07)
[2017-01-27] MEDS: EYE EACHEYE SCH (22:07)
[2017-01-27] MEDS: TRAVOPROST 0.004% EACHEYE SCH (22:07)
[2017-01-28] VITALS (79 sets, daily range): BP systolic 100–176; BP diastolic 43–93
[2017-01-28] MEDS: PROPRANOLOL HCL 1 MG/ML VIAL IV PRN (01:05)
[2017-01-28] MEDS: NITROGLYCERIN 50MG/250ML 250 ML IV SCH (01:23)
[2017-01-28] MEDS: DILTIAZEM 125mg/125ml BAG KIT 125 ML IV SCH (01:27)
[2017-01-28] MEDS: NICARDIPINE 25MG/250ML BAG KIT 250 ML IV SCH ×5 (02:00→21:51)
[2017-01-28] MEDS: InsuLIN REG 1unit/0.01ml Soln (100units/ml) SC SCH ×7 (02:00→21:53)
[2017-01-28] MEDS: POTASSIUM CHL 20MEQ/100ML 100 ML IV PRN (02:22)
[2017-01-28] MEDS: VANCOMYCIN 1GM/250ML D5W 250 ML IV SCH (03:00)
[2017-01-28 03:13] LABS: Basophils # (auto) 0 uL; Basophils % (auto) 0.1 % (0.0-2.0); Eosinophils # (auto) 0 uL; Hematocrit 30.6 % (36.0-46.0); Hemoglobin 10.2 g/dL (12.2-16.2); Lymphocytes # (auto) 1.5 uL; Lymphocytes % (auto) 9.8 % (10.0-50.0); Mean Corpuscular Hemoglobin 30.8 pg (28.0-32.0); Mean Corpuscular Hgb Conc. 33.3 g/dL (32.0-36.0); Mean Corpuscular Volume 92.3 fL (80.0-100.0); Mean Platelet Volume 9.8 fL (7.4-10.4); Monocytes # (auto) 1.3 uL; Monocytes % (auto) 8.3 % (0.0-12.0); Neutrophils # (auto) 12.4 uL; Neutrophils % (auto) 81.8 % (37.0-80.0); Platelet Count (auto) 177 10^3/uL (140-450); Red Cell Distribution Width 16.3 % (11.6-16.0); SUSPECT VIEW TRANSMISSION; White Blood Cell 15.1 10^3/uL (4.4-10.8)
[2017-01-28 03:21] LABS: BUN/Creatinine Ratio 14.3; Calcium 8.2 mg/dL (8.5-10.1); Potassium 3.8 mmol/L (3.5-5.1)
[2017-01-28 04:10] LABS: Basophils # (auto) 0 uL; Eosinophils # (auto) 0 uL; Hematocrit 30.5 % (36.0-46.0); Hemoglobin 10.2 g/dL (12.2-16.2); Lymphocytes # (auto) 1.8 uL; Lymphocytes % (auto) 10.4 % (10.0-50.0); Mean Corpuscular Hemoglobin 30.6 pg (28.0-32.0); Mean Corpuscular Hgb Conc. 33.5 g/dL (32.0-36.0); Mean Corpuscular Volume 91.1 fL (80.0-100.0); Mean Platelet Volume 9.2 fL (7.4-10.4); Monocytes # (auto) 1.2 uL; Monocytes % (auto) 6.7 % (0.0-12.0); Neutrophils # (auto) 14.5 uL; Neutrophils % (auto) 82.9 % (37.0-80.0); Platelet Count (auto) 183 10^3/uL (140-450); Red Cell Distribution Width 16.1 % (11.6-16.0); White Blood Cell 17.5 10^3/uL (4.4-10.8)
[2017-01-28 04:39] LABS: Albumin 3.1 g/dL (3.4-5.0); Bilirubin, Total 0.7 mg/dL (0.2-1.0); Calcium 8.2 mg/dL (8.5-10.1); Magnesium 1.8 mg/dL (1.6-2.6); Total Protein 5.5 g/dL (6.4-8.2)
[2017-01-28 04:46] LABS: Potassium 5.8 mmol/L (3.5-5.1)
[2017-01-28] MEDS: OXYCODONE W/ ACETAMINOPHEN 5/325MG TABLET PO PRN ×2 (06:16→22:15)
[2017-01-28] MEDS: FUROSEMIDE 40 MG TAB PO SCH ×2 (06:17→17:47)
[2017-01-28 06:28] LABS: BUN/Creatinine Ratio 16.7; Calcium 8.5 mg/dL (8.5-10.1); Potassium 4.8 mmol/L (3.5-5.1)
[2017-01-28] MEDS: ceFAZolin 1GM 2 GM in D5W 5% 100 ML IV SCH (07:00)
[2017-01-28] MEDS ORDERED: glipiZIDE 5 MG TAB PO SCH (07:00)
[2017-01-28] MEDS: IPRATROPIUM BROM 0.5 MG/2.5ML INH SOL NEB SCH ×4 (07:09→18:11)
[2017-01-28] MEDS: Boost Glucose Control 8 Ounces PO SCH ×3 (08:00→17:34)
[2017-01-28 08:17] LABS: Calcium 8.5 mg/dL (8.5-10.1); Magnesium 1.9 mg/dL (1.6-2.6); Phosphorus 3.9 mg/dL (2.5-4.90)
[2017-01-28] MEDS: MORPHINE SULF INJ 2 MG/ML SYRINGE 1ML IV PRN ×3 (08:52→20:04)
[2017-01-28] MEDS: CHLORHEXIDINE 0.12% ORAL rinse 473ML MT SCH ×2 (09:50→21:53)
[2017-01-28] MEDS: SODIUM CHLORIDE 0.9% 1,000 ML IV SCH (09:51)
[2017-01-28] MEDS ORDERED: LISINOPRIL 5 MG TAB PO SCH (10:00)
[2017-01-28] MEDS: ASPirin 81 mg TAB PO SCH (10:03)
[2017-01-28] MEDS: DOCUSATE SOD 100 MG CAP PO SCH ×2 (10:04→21:53)
[2017-01-28] MEDS: AMIODARONE HCL 200 MG TAB PO SCH ×2 (10:04→21:53)
[2017-01-28] MEDS: METOPROLOL TARTRATE 25 MG TAB PO SCH ×2 (10:04→21:53)
[2017-01-28] MEDS: ASCORBIC ACID 500 MG TAB PO SCH ×2 (10:04→21:53)
[2017-01-28] MEDS: POTASSIUM CHL 20 Meq TABLET PO SCH (10:04)
[2017-01-28] MEDS: PANTOPRAZOLE 40 MG TAB PO SCH (10:04)
[2017-01-28] MEDS: ALLOPURINOL 100 MG TAB PO SCH (10:05)
[2017-01-28] MEDS: DIGOXIN (250MCG/ML) 2 ML AMPULE IV SCH (10:05)
[2017-01-28] MEDS: FENOFIBRATE 48 MG TAB PO SCH (10:05)
[2017-01-28] MEDS: NITROGLYCERIN 0.4MG/HR TOPICAL PATCH TD SCH (10:06)
[2017-01-28] MEDS: INSULIN DETEMIR(LEVEMIR) 1unit/0.01ml Soln (100units/ml) SC SCH ×2 (10:07→22:07)
[2017-01-28] MEDS: LISINOPRIL 5 MG TAB PO SCH (10:15)
[2017-01-28] MEDS ORDERED: INSULIN DETEMIR(LEVEMIR) 1unit/0.01ml Soln (100units/ml) SC ONE (11:00)
[2017-01-28] MEDS: SODIUM CHLORIDE 0.9% 500 ML IV SCH (14:05)
[2017-01-28] MEDS ORDERED: InsuLIN REG 1unit/0.01ml Soln (100units/ml) SC SCH (18:00)
[2017-01-28] MEDS: ACCU-CHEK COMFORT CURVE STRIP VI SCH ×2 (18:00→21:53)
[2017-01-28] MEDS: AMIODARONE HCL 900 MG in DEXTROSE 500 ML IV SCH (21:01)
[2017-01-28] MEDS: EYE EACHEYE SCH (21:52)
[2017-01-28] MEDS: TRAVOPROST 0.004% EACHEYE SCH (21:52)
[2017-01-28] MEDS: ATORVASTATIN 20 MG TAB PO SCH (21:53)
[2017-01-29] VITALS (88 sets, daily range): BP systolic 101–169; BP diastolic 47–111
[2017-01-29] MEDS: ACCU-CHEK COMFORT CURVE STRIP VI SCH ×6 (02:00→22:21)
[2017-01-29] MEDS: InsuLIN REG 1unit/0.01ml Soln (100units/ml) SC SCH ×6 (02:00→22:00)
[2017-01-29] MEDS: NICARDIPINE 25MG/250ML BAG KIT 250 ML IV SCH ×2 (02:51→07:51)
[2017-01-29] MEDS: MORPHINE SULF INJ 2 MG/ML SYRINGE 1ML IV PRN ×3 (03:45→12:12)
[2017-01-29 04:26] LABS: Basophils # (auto) 0 uL; Basophils % (auto) 0.2 % (0.0-2.0); Eosinophils # (auto) 0 uL; Eosinophils % (auto) 0.1 % (0.0-7.0); Hematocrit 32.2 % (36.0-46.0); Hemoglobin 10.6 g/dL (12.2-16.2); Lymphocytes # (auto) 1.8 uL; Lymphocytes % (auto) 12.4 % (10.0-50.0); Mean Corpuscular Hemoglobin 30.4 pg (28.0-32.0); Mean Corpuscular Hgb Conc. 32.9 g/dL (32.0-36.0); Mean Corpuscular Volume 92.3 fL (80.0-100.0); Mean Platelet Volume 9.9 fL (7.4-10.4); Monocytes # (auto) 1.2 uL; Monocytes % (auto) 8.3 % (0.0-12.0); Neutrophils # (auto) 11.6 uL; Platelet Count (auto) 180 10^3/uL (140-450); White Blood Cell 14.7 10^3/uL (4.4-10.8)
[2017-01-29 04:45] LABS: Potassium 3.8 mmol/L (3.5-5.1)
[2017-01-29 04:54] LABS: Albumin 2.8 g/dL (3.4-5.0); BUN/Creatinine Ratio 24.4; Magnesium 2.1 mg/dL (1.6-2.6)
[2017-01-29 05:03] LABS: Bilirubin, Total 0.6 mg/dL (0.2-1.0); Total Protein 5.5 g/dL (6.4-8.2)
[2017-01-29] MEDS: FUROSEMIDE 40 MG TAB PO SCH ×2 (06:00→17:52)
[2017-01-29] MEDS: SODIUM CHLORIDE 0.9% 1,000 ML IV SCH (06:51)
[2017-01-29] MEDS: IPRATROPIUM BROM 0.5 MG/2.5ML INH SOL NEB SCH ×4 (06:52→18:54)
[2017-01-29] MEDS ORDERED: glipiZIDE 5 MG TAB PO SCH (07:00)
[2017-01-29] MEDS: POTASSIUM CHL 20MEQ/100ML 100 ML IV PRN ×2 (08:05→09:32)
[2017-01-29] MEDS: Boost Glucose Control 8 Ounces PO SCH ×3 (08:20→17:52)
[2017-01-29] MEDS: DOCUSATE SOD 100 MG CAP PO SCH ×2 (09:33→21:54)
[2017-01-29] MEDS: ASCORBIC ACID 500 MG TAB PO SCH ×2 (09:33→21:56)
[2017-01-29] MEDS: NITROGLYCERIN 0.4MG/HR TOPICAL PATCH TD SCH (09:33)
[2017-01-29] MEDS: ASPirin 81 mg TAB PO SCH (09:33)
[2017-01-29] MEDS: ALLOPURINOL 100 MG TAB PO SCH (09:33)
[2017-01-29] MEDS: AMIODARONE HCL 200 MG TAB PO SCH ×2 (09:33→21:56)
[2017-01-29] MEDS: PANTOPRAZOLE 40 MG TAB PO SCH (09:33)
[2017-01-29] MEDS: LISINOPRIL 5 MG TAB PO SCH (09:34)
[2017-01-29] MEDS: POTASSIUM CHL 20 Meq TABLET PO SCH ×2 (09:34→21:55)
[2017-01-29] MEDS: DIGOXIN (250MCG/ML) 2 ML AMPULE IV SCH (09:34)
[2017-01-29] MEDS: METOPROLOL TARTRATE 25 MG TAB PO SCH ×2 (09:34→21:55)
[2017-01-29] MEDS: CHLORHEXIDINE 0.12% ORAL rinse 473ML MT SCH ×2 (09:35→21:56)
[2017-01-29] MEDS: FENOFIBRATE 48 MG TAB PO SCH (09:35)
[2017-01-29] MEDS: INSULIN DETEMIR(LEVEMIR) 1unit/0.01ml Soln (100units/ml) SC SCH ×2 (09:51→22:21)
[2017-01-29] MEDS ORDERED: LISINOPRIL 5 MG TAB PO SCH (10:00)
[2017-01-29] MEDS ORDERED: glipiZIDE 5 MG TAB PO ONE (12:45)
[2017-01-29] MEDS: SODIUM CHLORIDE 0.9% 500 ML IV SCH (15:14)
[2017-01-29] MEDS: OXYCODONE W/ ACETAMINOPHEN 5/325MG TABLET PO PRN (20:45)
[2017-01-29] MEDS: ATORVASTATIN 20 MG TAB PO SCH (21:55)
[2017-01-29] MEDS: TRAVOPROST 0.004% EACHEYE SCH (22:01)
[2017-01-29] MEDS: EYE EACHEYE SCH (22:01)
[2017-01-30] VITALS (50 sets, daily range): BP systolic 108–164; BP diastolic 35–111
[2017-01-30] MEDS: MORPHINE SULFATE 4 MG/ML SYRG IV PRN (02:34)
[2017-01-30] MEDS: SODIUM CHLORIDE 0.9% 1,000 ML IV SCH (02:51)
[2017-01-30] MEDS: ACCU-CHEK COMFORT CURVE STRIP VI SCH ×5 (03:47→21:55)
[2017-01-30] MEDS: InsuLIN REG 1unit/0.01ml Soln (100units/ml) SC SCH ×5 (03:55→21:55)
[2017-01-30 04:19] LABS: Basophils # (auto) 0 uL; Basophils % (auto) 0.4 % (0.0-2.0); Eosinophils # (auto) 0.1 uL; Eosinophils % (auto) 0.7 % (0.0-7.0); Hematocrit 32.8 % (36.0-46.0); Hemoglobin 10.9 g/dL (12.2-16.2); Lymphocytes # (auto) 2.1 uL; Lymphocytes % (auto) 20.8 % (10.0-50.0); Mean Corpuscular Hemoglobin 30.6 pg (28.0-32.0); Mean Corpuscular Hgb Conc. 33.1 g/dL (32.0-36.0); Mean Corpuscular Volume 92.7 fL (80.0-100.0); Mean Platelet Volume 9.4 fL (7.4-10.4); Monocytes # (auto) 1.1 uL; Monocytes % (auto) 10.5 % (0.0-12.0); Neutrophils % (auto) 67.6 % (37.0-80.0); Platelet Count (auto) 218 10^3/uL (140-450); Red Cell Distribution Width 15.6 % (11.6-16.0); White Blood Cell 10.3 10^3/uL (4.4-10.8)
[2017-01-30 04:26] LABS: Albumin 2.8 g/dL (3.4-5.0); BUN/Creatinine Ratio 29.3; Calcium 8.5 mg/dL (8.5-10.1); Potassium 4.2 mmol/L (3.5-5.1)
[2017-01-30 04:30] LABS: INR 1.03 (0.9-1.15); Partial Thromboplastin Time 25.2 sec (22.64-33.71); Prothrombin Time 11.1 sec (9.37-12.3)
[2017-01-30 04:33] LABS: Bilirubin, Total 0.6 mg/dL (0.2-1.0); Total Protein 5.8 g/dL (6.4-8.2)
[2017-01-30] MEDS: FUROSEMIDE 40 MG TAB PO SCH (06:15)
[2017-01-30] MEDS: IPRATROPIUM BROM 0.5 MG/2.5ML INH SOL NEB SCH ×4 (07:05→19:00)
[2017-01-30] MEDS: Boost Glucose Control 8 Ounces PO SCH ×3 (08:00→17:33)
[2017-01-30] MEDS: glipiZIDE 5 MG TAB PO SCH (08:02)
[2017-01-30] MEDS: OXYCODONE W/ ACETAMINOPHEN 5/325MG TABLET PO PRN ×2 (08:55→16:50)
[2017-01-30] MEDS ORDERED: IPRATROPIUM BROM 0.5 MG/2.5ML INH SOL NEB ONE (09:00)
[2017-01-30] MEDS: ALLOPURINOL 100 MG TAB PO SCH (09:42)
[2017-01-30] MEDS: FENOFIBRATE 48 MG TAB PO SCH (09:42)
[2017-01-30] MEDS: DOCUSATE SOD 100 MG CAP PO SCH ×2 (09:42→21:43)
[2017-01-30] MEDS: POTASSIUM CHL 20 Meq TABLET PO SCH ×2 (09:42→21:43)
[2017-01-30] MEDS: LISINOPRIL 5 MG TAB PO SCH (09:43)
[2017-01-30] MEDS: AMIODARONE HCL 200 MG TAB PO SCH ×2 (09:44→21:43)
[2017-01-30] MEDS: ASCORBIC ACID 500 MG TAB PO SCH ×2 (09:44→21:44)
[2017-01-30] MEDS: ASPirin 81 mg TAB PO SCH (09:44)
[2017-01-30] MEDS: DIGOXIN 0.125 MG TAB PO SCH (09:44)
[2017-01-30] MEDS: PANTOPRAZOLE 40 MG TAB PO SCH (09:44)
[2017-01-30] MEDS: METOPROLOL TARTRATE 25 MG TAB PO SCH ×2 (09:45→21:44)
[2017-01-30] MEDS: INSULIN DETEMIR(LEVEMIR) 1unit/0.01ml Soln (100units/ml) SC SCH ×2 (09:48→21:44)
[2017-01-30] MEDS ORDERED: LIDOCAINE 2%HCL (LOCAL ANESTH.) INJ 20ML MDV ONE (10:16)
[2017-01-30] MEDS: CHLORHEXIDINE 0.12% ORAL rinse 473ML MT SCH ×2 (10:25→21:43)
[2017-01-30 11:10] LABS: Potassium 4.9 mmol/L (3.5-5.1)
[2017-01-30] MEDS ORDERED: VANCOMYCIN 1GM/250ML D5W 250 ML IV ONE (11:44)
[2017-01-30] MEDS ORDERED: fentaNYL CITRATE 100 MCG/2 ML VL ONE (11:58)
[2017-01-30] MEDS ORDERED: MIDAZOLAM HCL 1MG/1ML-2 ML VIAL ONE (11:59)
[2017-01-30] MEDS ORDERED: VANCOMYCIN HCL 1000 MG VL ONE (12:02)
[2017-01-30] MEDS ORDERED: DEXTROSE (50%) 50ML SYRG IV PRN ×2 (14:15→18:15)
[2017-01-30] MEDS: SODIUM CHLORIDE 0.9% 500 ML IV SCH (15:00)
[2017-01-30] MEDS ORDERED: MILRINONE 20MG/100ML 100 ML IV SCH (18:13)
[2017-01-30] MEDS ORDERED: SODIUM CHLORIDE 0.9% 500 ML IV SCH (18:13)
[2017-01-30] MEDS ORDERED: SODIUM CHLORIDE 0.9% 1,000 ML IV SCH (18:13)
[2017-01-30] MEDS ORDERED: NITROGLYCERIN 50MG/250ML 250 ML IV SCH (18:13)
[2017-01-30] MEDS ORDERED: NOREPINEPHRINE BITARTRATE 250 ML IV SCH (18:13)
[2017-01-30] MEDS ORDERED: NICARDIPINE 25MG/250ML BAG KIT 250 ML IV SCH (18:13)
[2017-01-30] MEDS ORDERED: PHENYLEPHRINE IV 250 ML IV SCH (18:13)
[2017-01-30] MEDS ORDERED: PROPOFOL 100 ML IV SCH (18:13)
[2017-01-30] MEDS ORDERED: INSULIN DRIP 100 UNIT/100ML 100 ML IV SCH ×2 (18:13→18:38)
[2017-01-30] MEDS ORDERED: ONDANSETRON HCL 4 MG/2 ML VIAL IV PRN (18:15)
[2017-01-30] MEDS ORDERED: METOCLOPRAMIDE HCL 5MG/ml INJ 2ml VIAL IV PRN (18:15)
[2017-01-30] MEDS ORDERED: VANCOMYCIN 1GM/250ML D5W 250 ML IV SCH (18:15)
[2017-01-30] MEDS ORDERED: SODIUM BICARBONATE 8.4% INJ 50ML SYRINGE IV PRN (18:15)
[2017-01-30] MEDS ORDERED: AMIODARONE HCL 150 MG in D5W 5% 100 ML IV ONE (18:15)
[2017-01-30] MEDS ORDERED: POTASSIUM CHL 20MEQ/100ML 100 ML IV PRN (18:15)
[2017-01-30] MEDS ORDERED: MORPHINE SULFATE 4 MG/ML SYRG IV PRN ×2 (18:15)
[2017-01-30] MEDS ORDERED: ALBUMIN 5% 250 ML IV PRN (18:15)
[2017-01-30] MEDS ORDERED: MAGNESIUM SULFATE 1GM/100ML 100 ML IV PRN (18:15)
[2017-01-30] MEDS ORDERED: AMIODARONE HCL 900 MG in DEXTROSE 500 ML IV SCH (18:23)
[2017-01-30] MEDS ORDERED: ACCU-CHEK COMFORT CURVE STRIP VI SCH (19:00)
[2017-01-30] MEDS: fentaNYL CITRATE 100 MCG/2 ML VL IV PRN (21:30)
[2017-01-30] MEDS: TRAVOPROST 0.004% EACHEYE SCH (21:42)
[2017-01-30] MEDS: EYE EACHEYE SCH (21:42)
[2017-01-30] MEDS: ATORVASTATIN 20 MG TAB PO SCH (21:43)
[2017-01-30] MEDS ORDERED: CHLORHEXIDINE 0.12% ORAL rinse 473ML MT SCH (22:00)
[2017-01-31] VITALS (32 sets, daily range): BP systolic 109–165; BP diastolic 46–102
[2017-01-31] MEDS ORDERED: AMIODARONE HCL 900 MG in DEXTROSE 500 ML IV SCH (00:23)
[2017-01-31] MEDS: VANCOMYCIN 1GM/250ML D5W 250 ML IV SCH ×2 (01:30→15:24)
[2017-01-31] MEDS: fentaNYL CITRATE 100 MCG/2 ML VL IV PRN (01:48)
[2017-01-31] MEDS: SODIUM CHLORIDE 0.9% 1,000 ML IV SCH (02:00)
[2017-01-31] MEDS: MORPHINE SULF INJ 2 MG/ML SYRINGE 1ML IV PRN ×2 (03:26→17:15)
[2017-01-31 03:49] LABS: Basophils # (auto) 0 uL; Basophils % (auto) 0.2 % (0.0-2.0); Eosinophils # (auto) 0.2 uL; Eosinophils % (auto) 1.8 % (0.0-7.0); Hematocrit 35.7 % (36.0-46.0); Hemoglobin 11.6 g/dL (12.2-16.2); Lymphocytes # (auto) 1.6 uL; Lymphocytes % (auto) 19.3 % (10.0-50.0); Mean Corpuscular Hgb Conc. 32.5 g/dL (32.0-36.0); Mean Corpuscular Volume 92.2 fL (80.0-100.0); Mean Platelet Volume 8.9 fL (7.4-10.4); Monocytes # (auto) 1.4 uL; Monocytes % (auto) 16.3 % (0.0-12.0); Neutrophils # (auto) 5.2 uL; Neutrophils % (auto) 62.4 % (37.0-80.0); Platelet Count (auto) 276 10^3/uL (140-450); Red Cell Distribution Width 15.1 % (11.6-16.0); White Blood Cell 8.3 10^3/uL (4.4-10.8)
[2017-01-31 04:14] LABS: BUN/Creatinine Ratio 34.4; Calcium 8.6 mg/dL (8.5-10.1); Magnesium 1.9 mg/dL (1.6-2.6); Potassium 4.9 mmol/L (3.5-5.1)
[2017-01-31 04:32] LABS: INR 1.02 (0.9-1.15); Partial Thromboplastin Time 24.3 sec (22.64-33.71)
[2017-01-31] MEDS: ACCU-CHEK COMFORT CURVE STRIP VI SCH ×4 (06:11→23:58)
[2017-01-31] MEDS: OXYCODONE W/ ACETAMINOPHEN 5/325MG TABLET PO PRN ×2 (06:13→12:46)
[2017-01-31] MEDS: IPRATROPIUM BROM 0.5 MG/2.5ML INH SOL NEB SCH (06:41)
[2017-01-31] MEDS: InsuLIN REG 1unit/0.01ml Soln (100units/ml) SC SCH ×4 (06:49→23:58)
[2017-01-31] MEDS: glipiZIDE 5 MG TAB PO SCH (06:49)
[2017-01-31] MEDS: Boost Glucose Control 8 Ounces PO SCH ×3 (07:43→18:23)
[2017-01-31] MEDS: CHLORHEXIDINE 0.12% ORAL rinse 473ML MT SCH ×2 (09:34→22:00)
[2017-01-31] MEDS ORDERED: FUROSEMIDE 40 MG TAB PO SCH (10:00)
[2017-01-31] MEDS: FENOFIBRATE 48 MG TAB PO SCH (10:29)
[2017-01-31] MEDS: POTASSIUM CHL 20 Meq TABLET PO SCH ×2 (10:29→23:30)
[2017-01-31] MEDS: ASPirin 81 mg TAB PO SCH (10:29)
[2017-01-31] MEDS: DOCUSATE SOD 100 MG CAP PO SCH ×2 (10:29→23:30)
[2017-01-31] MEDS: DIGOXIN 0.125 MG TAB PO SCH (10:29)
[2017-01-31] MEDS: AMIODARONE HCL 200 MG TAB PO SCH ×2 (10:29→23:30)
[2017-01-31] MEDS: ASCORBIC ACID 500 MG TAB PO SCH ×2 (10:30→23:30)
[2017-01-31] MEDS: ALLOPURINOL 100 MG TAB PO SCH (10:30)
[2017-01-31] MEDS: PANTOPRAZOLE 40 MG TAB PO SCH (10:30)
[2017-01-31] MEDS: LISINOPRIL 5 MG TAB PO SCH (10:30)
[2017-01-31] MEDS: METOPROLOL TARTRATE 25 MG TAB PO SCH ×2 (10:30→23:30)
[2017-01-31] MEDS: INSULIN DETEMIR(LEVEMIR) 1unit/0.01ml Soln (100units/ml) SC SCH ×2 (10:37→23:31)
[2017-01-31] MEDS ORDERED: MECLIZINE HCL 25 MG TAB PO PRN (14:45)
[2017-01-31] MEDS: SODIUM CHLORIDE 0.9% 500 ML IV SCH (15:15)
[2017-01-31] MEDS ORDERED: PROPRANOLOL HCL 1 MG/ML VIAL IV ONE (18:30)
[2017-01-31] MEDS: EYE EACHEYE SCH (22:00)
[2017-01-31] MEDS: TRAVOPROST 0.004% EACHEYE SCH (22:00)
[2017-01-31] MEDS: ATORVASTATIN 20 MG TAB PO SCH (23:30)
[2017-02-01] VITALS (14 sets, daily range): BP systolic 92–153; BP diastolic 40–81
[2017-02-01] MEDS: MORPHINE SULF INJ 2 MG/ML SYRINGE 1ML IV PRN (03:41)
[2017-02-01 03:52] LABS: Basophils # (auto) 0 uL; Basophils % (auto) 0.1 % (0.0-2.0); Eosinophils # (auto) 0.3 uL; Eosinophils % (auto) 3.2 % (0.0-7.0); Hematocrit 36.2 % (36.0-46.0); Hemoglobin 11.9 g/dL (12.2-16.2); Mean Corpuscular Hemoglobin 30.1 pg (28.0-32.0); Mean Corpuscular Hgb Conc. 32.8 g/dL (32.0-36.0); Mean Corpuscular Volume 91.8 fL (80.0-100.0); Mean Platelet Volume 8.5 fL (7.4-10.4); Monocytes # (auto) 1.4 uL; Monocytes % (auto) 13.8 % (0.0-12.0); Neutrophils # (auto) 6.4 uL; Neutrophils % (auto) 62.9 % (37.0-80.0); Platelet Count (auto) 295 10^3/uL (140-450); Red Cell Distribution Width 14.8 % (11.6-16.0); White Blood Cell 10.1 10^3/uL (4.4-10.8)
[2017-02-01 04:04] LABS: BUN/Creatinine Ratio 31.3; Calcium 8.7 mg/dL (8.5-10.1); Magnesium 1.9 mg/dL (1.6-2.6); Potassium 4.4 mmol/L (3.5-5.1)
[2017-02-01 04:11] LABS: INR 1.06 (0.9-1.15); Partial Thromboplastin Time 22.8 sec (22.64-33.71); Prothrombin Time 11.4 sec (9.37-12.3)
[2017-02-01] MEDS: InsuLIN REG 1unit/0.01ml Soln (100units/ml) SC SCH ×4 (06:16→22:36)
[2017-02-01] MEDS: glipiZIDE 5 MG TAB PO SCH (06:16)
[2017-02-01] MEDS: ACCU-CHEK COMFORT CURVE STRIP VI SCH ×4 (06:16→22:30)
[2017-02-01] MEDS: OXYCODONE W/ ACETAMINOPHEN 5/325MG TABLET PO PRN ×3 (06:17→22:25)
[2017-02-01] MEDS: IPRATROPIUM BROM 0.5 MG/2.5ML INH SOL NEB SCH ×4 (06:18→18:12)
[2017-02-01] MEDS: Boost Glucose Control 8 Ounces PO SCH ×3 (08:00→18:00)
[2017-02-01] MEDS ORDERED: ENOXAPARIN SOD 30 MG/0.3 ML SYRINGE SC SCH (10:00)
[2017-02-01] MEDS: ASPirin 81 mg TAB PO SCH (10:18)
[2017-02-01] MEDS: POTASSIUM CHL 20 Meq TABLET PO SCH (10:18)
[2017-02-01] MEDS: DOCUSATE SOD 100 MG CAP PO SCH ×2 (10:18→22:00)
[2017-02-01] MEDS: LISINOPRIL 5 MG TAB PO SCH (10:19)
[2017-02-01] MEDS: METOPROLOL TARTRATE 50 MG TAB PO SCH ×2 (10:19→22:10)
[2017-02-01] MEDS: ALLOPURINOL 100 MG TAB PO SCH (10:19)
[2017-02-01] MEDS: ASCORBIC ACID 500 MG TAB PO SCH (10:20)
[2017-02-01] MEDS: DIGOXIN 0.125 MG TAB PO SCH (10:20)
[2017-02-01] MEDS: AMIODARONE HCL 200 MG TAB PO SCH ×2 (10:20→22:10)
[2017-02-01] MEDS: PANTOPRAZOLE 40 MG TAB PO SCH (10:20)
[2017-02-01] MEDS: FENOFIBRATE 48 MG TAB PO SCH (10:22)
[2017-02-01] MEDS: ENOXAPARIN SOD 40 MG/0.4 ML SYRINGE SC SCH (10:23)
[2017-02-01] MEDS: CHLORHEXIDINE 0.12% ORAL rinse 473ML MT SCH ×2 (10:26→22:11)
[2017-02-01] MEDS: INSULIN DETEMIR(LEVEMIR) 1unit/0.01ml Soln (100units/ml) SC SCH ×2 (10:26→22:35)
[2017-02-01] MEDS: MAGNESIUM SULFATE 1GM/100ML 100 ML IV SCH ×2 (12:30→13:30)
[2017-02-01] MEDS ORDERED: GASTROGRAFIN 120 ML SOL ONE (13:06)
[2017-02-01] MEDS ORDERED: WARFARIN SODIUM 2 MG TAB PO ONE (17:00)
[2017-02-01] MEDS ORDERED: WARFARIN SODIUM 5 MG TAB PO ONE (17:00)
[2017-02-01] MEDS: SODIUM CHLORIDE 0.9% 500 ML IV SCH (18:11)
[2017-02-01] MEDS: ATORVASTATIN 20 MG TAB PO SCH (22:10)
[2017-02-01] MEDS: EYE EACHEYE SCH (22:37)
[2017-02-01] MEDS: TRAVOPROST 0.004% EACHEYE SCH (22:37)
[2017-02-02] VITALS (58 sets, daily range): BP systolic 96–141; BP diastolic 35–99
[2017-02-02] MEDS: OXYCODONE W/ ACETAMINOPHEN 5/325MG TABLET PO PRN ×2 (04:37→11:17)
[2017-02-02 05:28] LABS: Basophils # (auto) 0 uL; Basophils % (auto) 0.3 % (0.0-2.0); Eosinophils # (auto) 0.6 uL; Eosinophils % (auto) 6.2 % (0.0-7.0); Hematocrit 32.4 % (36.0-46.0); Hemoglobin 10.7 g/dL (12.2-16.2); Lymphocytes # (auto) 2.8 uL; Lymphocytes % (auto) 27.2 % (10.0-50.0); Mean Corpuscular Hemoglobin 30.5 pg (28.0-32.0); Mean Corpuscular Hgb Conc. 33.1 g/dL (32.0-36.0); Mean Corpuscular Volume 92.2 fL (80.0-100.0); Mean Platelet Volume 8.5 fL (7.4-10.4); Monocytes # (auto) 1.3 uL; Neutrophils # (auto) 5.7 uL; Neutrophils % (auto) 54.3 % (37.0-80.0); Platelet Count (auto) 287 10^3/uL (140-450); Red Cell Distribution Width 14.9 % (11.6-16.0); White Blood Cell 10.4 10^3/uL (4.4-10.8)
[2017-02-02 05:43] LABS: BUN/Creatinine Ratio 33.6; Calcium 8.1 mg/dL (8.5-10.1); Magnesium 2.4 mg/dL (1.6-2.6); Potassium 4.6 mmol/L (3.5-5.1)
[2017-02-02 05:44] LABS: INR 1.06 (0.9-1.15); Partial Thromboplastin Time 26.3 sec (22.64-33.71); Prothrombin Time 11.4 sec (9.37-12.3)
[2017-02-02] MEDS: IPRATROPIUM BROM 0.5 MG/2.5ML INH SOL NEB SCH ×4 (06:39→18:45)
[2017-02-02] MEDS: glipiZIDE 5 MG TAB PO SCH (06:41)
[2017-02-02] MEDS: ACCU-CHEK COMFORT CURVE STRIP VI SCH ×4 (06:41→21:30)
[2017-02-02] MEDS: InsuLIN REG 1unit/0.01ml Soln (100units/ml) SC SCH ×4 (06:41→21:30)
[2017-02-02] MEDS: Boost Glucose Control 8 Ounces PO SCH ×3 (08:00→18:00)
[2017-02-02] MEDS ORDERED: SODIUM CHLORIDE 0.9% 1,000 ML IV SCH (08:30)
[2017-02-02] MEDS ORDERED: GASTROGRAFIN 120 ML SOL ONE (09:56)
[2017-02-02] MEDS ORDERED: POTASSIUM CHL 20 Meq TABLET PO SCH (10:00)
[2017-02-02] MEDS: INSULIN DETEMIR(LEVEMIR) 1unit/0.01ml Soln (100units/ml) SC SCH ×2 (10:00→21:30)
[2017-02-02] MEDS: CHLORHEXIDINE 0.12% ORAL rinse 473ML MT SCH ×2 (10:00→21:28)
[2017-02-02] MEDS: FENOFIBRATE 48 MG TAB PO SCH (10:00)
[2017-02-02] MEDS: ENOXAPARIN SOD 40 MG/0.4 ML SYRINGE SC SCH (10:43)
[2017-02-02] MEDS: DOCUSATE SOD 100 MG CAP PO SCH ×2 (10:44→21:11)
[2017-02-02] MEDS: ASPirin 81 mg TAB PO SCH (10:45)
[2017-02-02] MEDS: PANTOPRAZOLE 40 MG TAB PO SCH (10:46)
[2017-02-02] MEDS: DIGOXIN 0.125 MG TAB PO SCH (10:46)
[2017-02-02] MEDS: METOPROLOL TARTRATE 50 MG TAB PO SCH ×2 (10:46→21:31)
[2017-02-02] MEDS: hydrALAZINE HCL 10 MG TAB PO SCH ×2 (12:30→21:28)
[2017-02-02] MEDS: SODIUM CHLORIDE 0.9% 500 ML IV SCH (14:51)
[2017-02-02 16:21] LABS: Albumin 2.8 g/dL (3.4-5.0); BUN/Creatinine Ratio 31.9; Calcium 8.6 mg/dL (8.5-10.1); Potassium 5.3 mmol/L (3.5-5.1)
[2017-02-02 16:24] LABS: Bilirubin, Total 0.5 mg/dL (0.2-1.0); Total Protein 6.2 g/dL (6.4-8.2)
[2017-02-02] MEDS ORDERED: WARFARIN SODIUM 5 MG TAB PO ONE (17:00)
[2017-02-02] MEDS ORDERED: WARFARIN SODIUM 2 MG TAB PO ONE (17:00)
[2017-02-02] MEDS: ATORVASTATIN 20 MG TAB PO SCH (21:28)
[2017-02-02] MEDS: TRAVOPROST 0.004% EACHEYE SCH (21:31)
[2017-02-02] MEDS: EYE EACHEYE SCH (21:31)
[2017-02-03] VITALS (22 sets, daily range): BP systolic 104–147; BP diastolic 43–82
[2017-02-03 04:16] LABS: Basophils # (auto) 0 uL; Basophils % (auto) 0.2 % (0.0-2.0); Eosinophils # (auto) 0.4 uL; Eosinophils % (auto) 4.8 % (0.0-7.0); Hematocrit 31.7 % (36.0-46.0); Hemoglobin 10.5 g/dL (12.2-16.2); Lymphocytes # (auto) 1.8 uL; Mean Corpuscular Hemoglobin 30.3 pg (28.0-32.0); Mean Corpuscular Volume 91.8 fL (80.0-100.0); Mean Platelet Volume 8.4 fL (7.4-10.4); Monocytes # (auto) 0.9 uL; Monocytes % (auto) 10.5 % (0.0-12.0); Neutrophils # (auto) 5.2 uL; Neutrophils % (auto) 62.5 % (37.0-80.0); Platelet Count (auto) 314 10^3/uL (140-450); Red Cell Distribution Width 15.6 % (11.6-16.0); White Blood Cell 8.4 10^3/uL (4.4-10.8)
[2017-02-03 04:30] LABS: Potassium 4.7 mmol/L (3.5-5.1)
[2017-02-03 04:31] LABS: BUN/Creatinine Ratio 32.1; Calcium 8.4 mg/dL (8.5-10.1); Magnesium 2.2 mg/dL (1.6-2.6)
[2017-02-03 05:11] LABS: Partial Thromboplastin Time 29.5 sec (22.64-33.71)
[2017-02-03 05:12] LABS: INR 1.54 (0.9-1.15); Prothrombin Time 16.6 sec (9.37-12.3)
[2017-02-03] MEDS: hydrALAZINE HCL 10 MG TAB PO SCH ×4 (06:00→17:36)
[2017-02-03] MEDS: InsuLIN REG 1unit/0.01ml Soln (100units/ml) SC SCH ×4 (06:34→22:16)
[2017-02-03] MEDS: ACCU-CHEK COMFORT CURVE STRIP VI SCH ×4 (06:34→21:53)
[2017-02-03] MEDS: IPRATROPIUM BROM 0.5 MG/2.5ML INH SOL NEB SCH ×4 (06:51→19:19)
[2017-02-03] MEDS ORDERED: CALCIUM GLUC 4.65 MEQ/10ML 4.65 MEQ in SODIUM CHL 0.9% 50 ML IV ONE (07:45)
[2017-02-03] MEDS: Boost Glucose Control 8 Ounces PO SCH ×3 (08:00→17:36)
[2017-02-03] MEDS: SODIUM CHLORIDE 0.9% 1,000 ML IV SCH ×2 (08:30→21:50)
[2017-02-03] MEDS: glipiZIDE 5 MG TAB PO SCH (08:36)
[2017-02-03] MEDS: OXYCODONE W/ ACETAMINOPHEN 5/325MG TABLET PO PRN ×2 (08:37→14:45)
[2017-02-03] MEDS: PANTOPRAZOLE 40 MG TAB PO SCH (09:13)
[2017-02-03] MEDS: ASPirin 81 mg TAB PO SCH (09:13)
[2017-02-03] MEDS: ENOXAPARIN SOD 40 MG/0.4 ML SYRINGE SC SCH (09:14)
[2017-02-03] MEDS: METOPROLOL TARTRATE 50 MG TAB PO SCH ×2 (09:14→21:01)
[2017-02-03] MEDS: FENOFIBRATE 48 MG TAB PO SCH (09:14)
[2017-02-03] MEDS: DOCUSATE SOD 100 MG CAP PO SCH ×2 (09:14→21:01)
[2017-02-03] MEDS: CHLORHEXIDINE 0.12% ORAL rinse 473ML MT SCH ×2 (09:15→21:01)
[2017-02-03] MEDS: INSULIN DETEMIR(LEVEMIR) 1unit/0.01ml Soln (100units/ml) SC SCH ×2 (09:17→22:16)
[2017-02-03] MEDS ORDERED: MORPHINE SULF INJ 2 MG/ML SYRINGE 1ML IV PRN (11:30)
[2017-02-03] MEDS: SODIUM CHLORIDE 0.9% 500 ML IV SCH (14:51)
[2017-02-03] MEDS ORDERED: WARFARIN SODIUM 1 MG TAB PO ONE ×2 (17:00)
[2017-02-03] MEDS: EYE EACHEYE SCH (21:01)
[2017-02-03] MEDS: ATORVASTATIN 20 MG TAB PO SCH (21:01)
[2017-02-03] MEDS: TRAVOPROST 0.004% EACHEYE SCH (21:01)
[2017-02-04] VITALS (10 sets, daily range): BP systolic 111–148; BP diastolic 44–61
[2017-02-04] MEDS: hydrALAZINE HCL 10 MG TAB PO SCH ×2 (02:00→06:00)
[2017-02-04] MEDS: OXYCODONE W/ ACETAMINOPHEN 5/325MG TABLET PO PRN ×4 (03:42→21:51)
[2017-02-04 04:44] LABS: Partial Thromboplastin Time 32.4 sec (22.64-33.71)
[2017-02-04 04:48] LABS: INR 2.3 (0.9-1.15); Prothrombin Time 24.8 sec (9.37-12.3)
[2017-02-04 04:51] LABS: BUN/Creatinine Ratio 27.2; Calcium 8.4 mg/dL (8.5-10.1); Magnesium 2.2 mg/dL (1.6-2.6); Potassium 4.6 mmol/L (3.5-5.1)
[2017-02-04] MEDS: ACCU-CHEK COMFORT CURVE STRIP VI SCH ×4 (06:47→22:00)
[2017-02-04] MEDS: glipiZIDE 5 MG TAB PO SCH (06:47)
[2017-02-04] MEDS: InsuLIN REG 1unit/0.01ml Soln (100units/ml) SC SCH ×4 (06:47→21:50)
[2017-02-04] MEDS: IPRATROPIUM BROM 0.5 MG/2.5ML INH SOL NEB SCH ×4 (07:07→18:00)
[2017-02-04] MEDS: Boost Glucose Control 8 Ounces PO SCH ×3 (08:16→17:21)
[2017-02-04] MEDS ORDERED: ENOXAPARIN SOD 40 MG/0.4 ML SYRINGE SC SCH (10:00)
[2017-02-04] MEDS: DOCUSATE SOD 100 MG CAP PO SCH ×2 (10:00→21:59)
[2017-02-04] MEDS: CHLORHEXIDINE 0.12% ORAL rinse 473ML MT SCH ×2 (10:18→21:59)
[2017-02-04] MEDS: METOPROLOL TARTRATE 50 MG TAB PO SCH (10:19)
[2017-02-04] MEDS: ASPirin 81 mg TAB PO SCH (10:19)
[2017-02-04] MEDS: PANTOPRAZOLE 40 MG TAB PO SCH (10:19)
[2017-02-04] MEDS: FENOFIBRATE 48 MG TAB PO SCH (10:19)
[2017-02-04] MEDS: INSULIN DETEMIR(LEVEMIR) 1unit/0.01ml Soln (100units/ml) SC SCH ×2 (10:26→21:49)
[2017-02-04] MEDS ORDERED: fentaNYL CITRATE 100 MCG/2 ML VL IV PRN (13:15)
[2017-02-04] MEDS: SODIUM CHLORIDE 0.9% 500 ML IV SCH (14:51)
[2017-02-04] MEDS ORDERED: WARFARIN SODIUM 1 MG TAB PO ONE (17:00)
[2017-02-04] MEDS: ATORVASTATIN 20 MG TAB PO SCH (21:51)
[2017-02-04] MEDS: METOPROLOL TARTRATE 25 MG TAB PO SCH (21:51)
[2017-02-04] MEDS ORDERED: METOPROLOL TARTRATE 50 MG TAB PO SCH (22:00)
[2017-02-04] MEDS ORDERED: TRAVATAN Z 0.004% EACHEYE SCH (22:00)
[2017-02-04] MEDS ORDERED: EYE EACHEYE SCH (22:00)
[2017-02-05] VITALS (20 sets, daily range): BP systolic 104–137; BP diastolic 45–74
[2017-02-05] MEDS: OXYCODONE W/ ACETAMINOPHEN 5/325MG TABLET PO PRN ×2 (03:43→13:15)
[2017-02-05 04:23] LABS: Albumin 2.5 g/dL (3.4-5.0); BUN/Creatinine Ratio 24.4; Calcium 8.3 mg/dL (8.5-10.1); Potassium 4.3 mmol/L (3.5-5.1)
[2017-02-05 04:32] LABS: Bilirubin, Total 0.5 mg/dL (0.2-1.0); Total Protein 5.6 g/dL (6.4-8.2)
[2017-02-05 04:47] LABS: Partial Thromboplastin Time 33.3 sec (22.64-33.71)
[2017-02-05 04:49] LABS: INR 2.42 (0.9-1.15); Prothrombin Time 26.1 sec (9.37-12.3)
[2017-02-05] MEDS: ACCU-CHEK COMFORT CURVE STRIP VI SCH ×2 (05:30→11:29)
[2017-02-05] MEDS: InsuLIN REG 1unit/0.01ml Soln (100units/ml) SC SCH ×2 (07:00→11:48)
[2017-02-05] MEDS: glipiZIDE 5 MG TAB PO SCH (07:00)
[2017-02-05] MEDS: IPRATROPIUM BROM 0.5 MG/2.5ML INH SOL NEB SCH ×3 (07:22→14:00)
[2017-02-05] MEDS: Boost Glucose Control 8 Ounces PO SCH ×2 (08:00→12:59)
[2017-02-05] MEDS: INSULIN DETEMIR(LEVEMIR) 1unit/0.01ml Soln (100units/ml) SC SCH (10:00)
[2017-02-05] MEDS: ASPirin 81 mg TAB PO SCH (10:00)
[2017-02-05] MEDS: METOPROLOL TARTRATE 25 MG TAB PO SCH (10:00)
[2017-02-05] MEDS ORDERED: FENOFIBRATE 48 MG PO SCH (10:00)
[2017-02-05] MEDS: CHLORHEXIDINE 0.12% ORAL rinse 473ML MT SCH (10:00)
[2017-02-05] MEDS: PANTOPRAZOLE 40 MG TAB PO SCH (10:00)
[2017-02-05] MEDS: DOCUSATE SOD 100 MG CAP PO SCH (10:00)
[2017-02-05] MEDS: SODIUM CHLORIDE 0.9% 500 ML IV SCH (14:51)
[2017-02-05] MEDS ORDERED: NITROGLYCERIN 50MG/250ML BTL IV ONE (18:44)
[2017-02-05] MEDS ORDERED: [UNRECOGNIZED DRUG - OTHER] IV ONE (18:44)
== END 2017-02-05 18:45 | disposition home or self-care (01) | DRG 234 ==
LOC: ER 02:20 → CENTRAL 02:21 → TELE-CENTR 06:27 → CENTRAL 01-23 16:41 → TELE-CENTR 01-23 23:30 → ICU WEST 01-25 19:50
PROVIDERS: ADMIT Emergency Medicine; ATTEND Internal Medicine
PROC: 4A023N7 Measurement of Cardiac Sampling and Pressure, Left Heart, Percutaneous Approach (ICD-10-PCS; principal; 2017-01-23)
PROC: B2111ZZ Fluoroscopy of Multiple Coronary Arteries using Low Osmolar Contrast (ICD-10-PCS; 2017-01-23)
PROC: B2151ZZ Fluoroscopy of Left Heart using Low Osmolar Contrast (ICD-10-PCS; 2017-01-23)
PROC: 021109W Bypass Coronary Artery, Two Arteries from Aorta with Autologous Venous Tissue, Open Approach (ICD-10-PCS; 2017-01-29)
PROC: 02100Z9 Bypass Coronary Artery, One Artery from Left Internal Mammary, Open Approach (ICD-10-PCS; 2017-01-29)
PROC: 06BP4ZZ Excision of Right Saphenous Vein, Percutaneous Endoscopic Approach (ICD-10-PCS; 2017-01-29)
PROC: 03B10ZZ Excision of Left Internal Mammary Artery, Open Approach (ICD-10-PCS; 2017-01-29)
PROC: B2131ZZ Fluoroscopy of Multiple Coronary Artery Bypass Grafts using Low Osmolar Contrast (ICD-10-PCS; 2017-01-29)
PROC: 5A1221Z Performance of Cardiac Output, Continuous (ICD-10-PCS; 2017-01-29)
PROC: 3E080GC Introduction of Other Therapeutic Substance into Heart, Open Approach (ICD-10-PCS; 2017-01-29)
PROC: 0JH606Z Insertion of Pacemaker, Dual Chamber into Chest Subcutaneous Tissue and Fascia, Open Approach (ICD-10-PCS; 2017-01-30)
PROC: 02H63JZ Insertion of Pacemaker Lead into Right Atrium, Percutaneous Approach (ICD-10-PCS; 2017-01-30)
PROC: 02HK3JZ Insertion of Pacemaker Lead into Right Ventricle, Percutaneous Approach (ICD-10-PCS; 2017-01-30)
DX: I25.110 Atherosclerotic heart disease of native coronary artery with unstable angina pectoris (principal); D68.69 Other thrombophilia; E44.0 Moderate protein-calorie malnutrition; I48.1 Persistent atrial fibrillation; R06.89 Other abnormalities of breathing; I70.0 Atherosclerosis of aorta; E78.5 Hyperlipidemia, unspecified; I49.5 Sick sinus syndrome; I12.9 Hypertensive chronic kidney disease with stage 1 through stage 4 chronic kidney disease, or unspecified chronic kidney disease; K80.20 Calculus of gallbladder without cholecystitis without obstruction; E66.9 Obesity, unspecified; I48.2 Chronic atrial fibrillation; I27.2 Other secondary pulmonary hypertension; E11.22 Type 2 diabetes mellitus with diabetic chronic kidney disease; N18.3 Chronic kidney disease, stage 3 (moderate); Z88.5 Allergy status to narcotic agent; Z88.0 Allergy status to penicillin; Z88.8 Allergy status to other drugs, medicaments and biological substances; I25.2 Old myocardial infarction; Z82.49 Family history of ischemic heart disease and other diseases of the circulatory system; Z95.1 Presence of aortocoronary bypass graft; Z90.710 Acquired absence of both cervix and uterus; Z90.49 Acquired absence of other specified parts of digestive tract; Z95.0 Presence of cardiac pacemaker; Z68.26 Body mass index [BMI] 26.0-26.9, adult; Z79.899 Other long term (current) drug therapy; Z79.01 Long term (current) use of anticoagulants
CPT/HCPCS: 36415; 36600; 71010; 71250; 74220; 76881; 80048; 80053; 80162; 80202; 81001; 82310; 82805; 82962; 83036; 83735; 83880; 84100; 84132; 84484; 85025; 85576; 85610; 85730; 86850; 86900; 86901; 86920; 87070; 87081; 87086; 87205; 92610; 93005; 93306; 93458; 93886; 93926; 93931; 93970; 94002; 94003; 94640; 94660; 94761; 97001; 97116; 97530; 99152; C1751; C1768; C1785; C9113; J0153; J0690; J1642; J1644; J1815; J2250; J2440; J2704; J3480; J7060

== ENCOUNTER 2017-02-12 12:04 | Inpatient (IN) | payer OTHER ==
[~2017-02-12] VITALS: Ht 170.2 cm; Wt 74.8 kg
[2017-02-12 12:00] VITALS: BP 151/89
[~2017-02-12 12:04] MED LIST changes: +ASPI-498 PO
[2017-02-12] MEDS ORDERED: NITROGLYCERIN 0.4 MG SL TAB SL PRN (12:15)
[2017-02-12] MEDS ORDERED: ONDANSETRON HCL 4 MG/2 ML VIAL IV PRN ×2 (12:15→15:45)
[2017-02-12] MEDS ORDERED: MORPHINE SULF INJ 2 MG/ML SYRINGE 1ML IV PRN ×2 (12:15→15:45)
[2017-02-12] MEDS: SODIUM CHLOR 0.9% PF (SALINE LOCK) 10ML VIAL IV SCH ×2 (14:07→22:15)
[2017-02-12] MEDS ORDERED: LORazepam 2MG/ML-1ML VIAL IV PRN (15:45)
[2017-02-12] MEDS ORDERED: METOPROLOL TARTRATE 50 MG TAB PO ONE (15:45)
[2017-02-12] MEDS ORDERED: DEXTROSE (50%) 50ML SYRG IV PRN (15:45)
[2017-02-12 16:36] VITALS: BP_SYST 138; BP_SYST 143; BP_SYST 158; BP_DIAS 74; BP_DIAS 75; BP_DIAS 84
[2017-02-12] MEDS: InsuLIN REG 1unit/0.01ml Soln (100units/ml) SC SCH ×2 (16:57→22:00)
[2017-02-12] MEDS: ACCU-CHEK COMFORT CURVE STRIP VI SCH ×2 (16:57→22:16)
[2017-02-12] MEDS: HYDROcodone-ACET 5/325MG TAB PO PRN (16:58)
[2017-02-12 17:21] VITALS: BP 143/74
[2017-02-12] MEDS ORDERED: WARFARIN SODIUM 2 MG TAB PO ONE (17:45)
[2017-02-12 18:26] LABS: INR 1.96 (0.9-1.15); Prothrombin Time 21.2 sec (9.37-12.3)
[2017-02-12] MEDS ORDERED: WARF5TAB PO (18:59)
[2017-02-12 20:00] VITALS: BP 138/70
[2017-02-12 22:00] VITALS: BP 138/70
[2017-02-12] MEDS: ATORVASTATIN 20 MG TAB PO SCH (22:15)
[2017-02-12] MEDS: METOPROLOL TARTRATE 25 MG TAB PO SCH (22:16)
[2017-02-13] MEDS: HYDROcodone-ACET 5/325MG TAB PO PRN ×3 (04:36→22:16)
[2017-02-13 05:19] LABS: Basophils # (auto) 0 uL; Basophils % (auto) 0.5 % (0.0-2.0); Eosinophils # (auto) 0.3 uL; Eosinophils % (auto) 3.3 % (0.0-7.0); Hematocrit 30.5 % (36.0-46.0); Hemoglobin 10.1 g/dL (12.2-16.2); Lymphocytes # (auto) 1.8 uL; Lymphocytes % (auto) 21.1 % (10.0-50.0); Mean Corpuscular Hemoglobin 30.4 pg (28.0-32.0); Mean Corpuscular Volume 92.2 fL (80.0-100.0); Mean Platelet Volume 8.1 fL (7.4-10.4); Monocytes # (auto) 0.8 uL; Monocytes % (auto) 9.2 % (0.0-12.0); Neutrophils # (auto) 5.7 uL; Neutrophils % (auto) 65.9 % (37.0-80.0); Platelet Count (auto) 437 10^3/uL (140-450); Red Cell Distribution Width 15.7 % (11.6-16.0); White Blood Cell 8.7 10^3/uL (4.4-10.8)
[2017-02-13 05:30] VITALS: BP 124/61
[2017-02-13] MEDS: SODIUM CHLOR 0.9% PF (SALINE LOCK) 10ML VIAL IV SCH ×3 (05:31→22:15)
[2017-02-13 05:43] LABS: Calcium 7.9 mg/dL (8.5-10.1); Potassium 4.2 mmol/L (3.5-5.1)
[2017-02-13 05:46] LABS: Albumin 2.7 g/dL (3.4-5.0); BUN/Creatinine Ratio 17.1
[2017-02-13 05:49] LABS: Bilirubin, Total 0.5 mg/dL (0.2-1.0); Total Protein 5.6 g/dL (6.4-8.2)
[2017-02-13 05:56] LABS: INR 1.78 (0.9-1.15); Prothrombin Time 19.2 sec (9.37-12.3)
[2017-02-13] MEDS: InsuLIN REG 1unit/0.01ml Soln (100units/ml) SC SCH ×4 (06:53→22:24)
[2017-02-13] MEDS: ACCU-CHEK COMFORT CURVE STRIP VI SCH ×4 (06:53→22:15)
[2017-02-13 09:06] VITALS: BP 140/68
[2017-02-13] MEDS ORDERED: LISINOPRIL 10 MG TAB PO SCH (10:00)
[2017-02-13] MEDS: ALLOPURINOL 100 MG TAB PO SCH (10:43)
[2017-02-13] MEDS: METOPROLOL TARTRATE 25 MG TAB PO SCH (10:44)
[2017-02-13 12:42] VITALS: BP 142/70
[2017-02-13 16:26] VITALS: BP 135/67
[2017-02-13] MEDS ORDERED: WARFARIN SODIUM 2 MG TAB PO ONE (17:00)
[2017-02-13 20:00] VITALS: BP 128/55
[2017-02-13 22:00] VITALS: BP 128/55
[2017-02-13] MEDS: ATORVASTATIN 20 MG TAB PO SCH (22:14)
[2017-02-13] MEDS: METOPROLOL TARTRATE 50 MG TAB PO SCH (22:15)
[2017-02-14 05:30] VITALS: BP 123/67
[2017-02-14] MEDS: SODIUM CHLOR 0.9% PF (SALINE LOCK) 10ML VIAL IV SCH ×2 (05:41→16:04)
[2017-02-14] MEDS: ACCU-CHEK COMFORT CURVE STRIP VI SCH ×3 (06:30→17:04)
[2017-02-14] MEDS: InsuLIN REG 1unit/0.01ml Soln (100units/ml) SC SCH ×3 (06:30→17:00)
[2017-02-14 07:13] LABS: Partial Thromboplastin Time 28.5 sec (22.64-33.71)
[2017-02-14 07:18] LABS: INR 1.92 (0.9-1.15); Prothrombin Time 20.7 sec (9.37-12.3)
[2017-02-14 08:00] VITALS: BP 122/71
[2017-02-14 09:00] VITALS: BP 122/71
[2017-02-14] MEDS: ALLOPURINOL 100 MG TAB PO SCH (09:27)
[2017-02-14] MEDS: METOPROLOL TARTRATE 50 MG TAB PO SCH (09:27)
[2017-02-14 13:00] VITALS: BP 127/70
[2017-02-14 15:55] VITALS: BP 122/71
[2017-02-14] MEDS ORDERED: WARFARIN SODIUM 2 MG TAB PO ONE (17:00)
== END 2017-02-14 18:35 | disposition home or self-care (01) | DRG 310 ==
LOC: TELE-WESTW 12:04
PROVIDERS: ADMIT Family Medicine; ATTEND Internal Medicine
DX: I48.91 Unspecified atrial fibrillation (principal); E11.22 Type 2 diabetes mellitus with diabetic chronic kidney disease; E78.5 Hyperlipidemia, unspecified; I12.9 Hypertensive chronic kidney disease with stage 1 through stage 4 chronic kidney disease, or unspecified chronic kidney disease; I25.10 Atherosclerotic heart disease of native coronary artery without angina pectoris; K80.20 Calculus of gallbladder without cholecystitis without obstruction; M10.9 Gout, unspecified; N18.3 Chronic kidney disease, stage 3 (moderate); Z95.0 Presence of cardiac pacemaker; Z95.1 Presence of aortocoronary bypass graft; E86.0 Dehydration
CPT/HCPCS: 36415; 71010; 80053; 82962; 85025; 85610; 85730; 87081; 93005; 97001; J1815

== ENCOUNTER 2017-03-16 19:12 | Inpatient (IN) | payer OTHER ==
[~2017-03-16] VITALS: Ht 170.2 cm; Wt 73.7 kg
[~2017-03-16 19:12] MED LIST changes: -METF-312 PO; +METF-370 PO; +WARF5TAB PO
[2017-03-16 19:30] VITALS: BP 158/82
[2017-03-16 21:30] VITALS: BP 158/82
[2017-03-16] MEDS ORDERED: INSUINJ37 SUBCUT (22:17)
[2017-03-16] MEDS ORDERED: HYDROcodone-ACET 5/325MG TAB PO PRN (23:30)
[2017-03-16] MEDS ORDERED: ASPirin 81 mg TAB PO ONE (23:30)
[2017-03-16] MEDS ORDERED: DEXTROSE (50%) 50ML SYRG IV PRN (23:30)
[2017-03-16] MEDS ORDERED: METOPROLOL TARTRATE 25 MG TAB PO ONE (23:30)
[2017-03-17] MEDS: ACETAMINOPHEN 325 MG TAB PO PRN ×2 (00:37→12:57)
[2017-03-17 00:48] LABS: Basophils # (auto) 0.1 uL; Basophils % (auto) 0.8 % (0.0-2.0); Eosinophils # (auto) 0.3 uL; Eosinophils % (auto) 3.4 % (0.0-7.0); Hematocrit 35.4 % (36.0-46.0); Hemoglobin 11.7 g/dL (12.2-16.2); Lymphocytes # (auto) 2.1 uL; Lymphocytes % (auto) 21.3 % (10.0-50.0); Mean Corpuscular Hemoglobin 30.1 pg (28.0-32.0); Mean Corpuscular Hgb Conc. 33.1 g/dL (32.0-36.0); Mean Platelet Volume 8.2 fL (7.4-10.4); Monocytes # (auto) 0.9 uL; Monocytes % (auto) 9.2 % (0.0-12.0); Neutrophils # (auto) 6.2 uL; Neutrophils % (auto) 65.3 % (37.0-80.0); Platelet Count (auto) 302 10^3/uL (140-450); Red Cell Distribution Width 14.3 % (11.6-16.0); White Blood Cell 9.6 10^3/uL (4.4-10.8)
[2017-03-17] MEDS: InsuLIN REG 1unit/0.01ml Soln (100units/ml) SC SCH ×4 (01:04→17:45)
[2017-03-17] MEDS: ACCU-CHEK COMFORT CURVE STRIP VI SCH ×4 (01:04→17:24)
[2017-03-17 01:10] LABS: Albumin 2.5 g/dL (3.4-5.0); Anion Gap 13 (5-15); BUN/Creatinine Ratio 16.7; Blood Urea Nitrogen 14 mg/dL (7-18); Calcium 8.4 mg/dL (8.5-10.1); Carbon Dioxide 24 mmol/L (21-32); Chloride 105 mmol/L (98-107); GFR African American 84 mL/min; GFR Non-African American 70 mL/min; Glucose 190 mg/dL (74-106); Potassium 4.1 mmol/L (3.5-5.1); Sodium 142 mmol/L (136-145)
[2017-03-17 01:15] LABS: Alkaline Phosphatase 99 U/L (45-117); Aspartate Aminotransferase 22 U/L (15-37); Bilirubin, Total 0.3 mg/dL (0.2-1.0); Total Protein 6.2 g/dL (6.4-8.2)
[2017-03-17 01:21] LABS: Urine Bilirubin Negative (Negative); Urine Blood Negative /uL (Negative); Urine Color Yellow (Yellow); Urine Glucose Normal (Normal); Urine Ketone Negative (Negative); Urine Mucus FEW (None Seen); Urine Nitrite Negative (Negative); Urine RBC 2 /hpf (0 - 4); Urine Squamous Epithelial Cell FEW /hpf (<5); Urine Urobilinogen Normal (Negative)
[2017-03-17 05:00] VITALS: BP 128/96
[2017-03-17 06:00] VITALS: BP 149/79
[2017-03-17 08:00] VITALS: BP 128/96
[2017-03-17] MEDS: FAMOTIDINE 20 MG TAB PO SCH ×2 (09:34→21:57)
[2017-03-17] MEDS: LISINOPRIL 10 MG TAB PO SCH (09:34)
[2017-03-17] MEDS: ASPirin 81 mg TAB PO SCH (09:34)
[2017-03-17] MEDS: METOPROLOL TARTRATE 25 MG TAB PO SCH ×2 (09:34→21:58)
[2017-03-17] MEDS ORDERED: ENOXAPARIN SOD 40 MG/0.4 ML SYRINGE SC SCH (10:00)
[2017-03-17 13:00] VITALS: BP 114/74
[2017-03-17] MEDS ORDERED: BISACODYL 5 MG EC TAB PO ONE (14:30)
[2017-03-17] MEDS ORDERED: LACTULOSE 20Gm/30ML SOLN PO ONE (14:30)
[2017-03-17] MEDS ORDERED: cefTRIAXone 1GM/50ML D5W 50 ML IV ONE (14:45)
[2017-03-17 16:19] LABS: INR 0.98 (0.9-1.15); Partial Thromboplastin Time 25.8 sec (22.64-33.71); Prothrombin Time 10.7 sec (9.37-12.3)
[2017-03-17 17:00] VITALS: BP 135/74
[2017-03-17] MEDS ORDERED: WARFARIN SODIUM 5 MG TAB PO ONE (17:00)
[2017-03-17] MEDS: ATORVASTATIN 20 MG TAB PO SCH (21:57)
[2017-03-17 22:09] VITALS: BP 153/89
[2017-03-18] MEDS: ACCU-CHEK COMFORT CURVE STRIP VI SCH ×4 (01:19→17:08)
[2017-03-18] MEDS: InsuLIN REG 1unit/0.01ml Soln (100units/ml) SC SCH ×4 (01:20→17:31)
[2017-03-18 04:41] VITALS: BP 141/80
[2017-03-18 06:39] LABS: INR 1.04 (0.9-1.15); Partial Thromboplastin Time 25.7 sec (22.64-33.71); Prothrombin Time 11.3 sec (9.37-12.3)
[2017-03-18 08:00] VITALS: BP 149/76
[2017-03-18] MEDS: cefTRIAXone 1GM/50ML D5W 50 ML IV SCH (08:10)
[2017-03-18 09:00] VITALS: BP 149/76
[2017-03-18] MEDS: ALLOPURINOL 100 MG TAB PO SCH (09:25)
[2017-03-18] MEDS: LISINOPRIL 10 MG TAB PO SCH (09:26)
[2017-03-18] MEDS: FAMOTIDINE 20 MG TAB PO SCH ×2 (09:26→22:45)
[2017-03-18] MEDS: METOPROLOL TARTRATE 25 MG TAB PO SCH ×2 (09:26→22:46)
[2017-03-18] MEDS: ASPirin 81 mg TAB PO SCH (09:26)
[2017-03-18 13:00] VITALS: BP 97/57
[2017-03-18] MEDS ORDERED: WARFARIN SODIUM 5 MG TAB PO ONE (17:00)
[2017-03-18 17:03] VITALS: BP 137/66
[2017-03-18] MEDS: ACETAMINOPHEN 325 MG TAB PO PRN (21:20)
[2017-03-18 21:46] VITALS: BP 137/70
[2017-03-18] MEDS: ATORVASTATIN 20 MG TAB PO SCH (22:46)
[2017-03-19] MEDS: InsuLIN REG 1unit/0.01ml Soln (100units/ml) SC SCH ×4 (00:14→18:00)
[2017-03-19] MEDS: ACCU-CHEK COMFORT CURVE STRIP VI SCH ×4 (00:14→18:00)
[2017-03-19 04:45] VITALS: BP 150/82
[2017-03-19 07:14] LABS: Basophils # (auto) 0 uL; Basophils % (auto) 0.2 % (0.0-2.0); Eosinophils # (auto) 0.4 uL; Eosinophils % (auto) 4.1 % (0.0-7.0); Hemoglobin 11.8 g/dL (12.2-16.2); Lymphocytes # (auto) 2.2 uL; Lymphocytes % (auto) 24.7 % (10.0-50.0); Mean Corpuscular Hemoglobin 30.9 pg (28.0-32.0); Mean Corpuscular Hgb Conc. 33.7 g/dL (32.0-36.0); Mean Corpuscular Volume 91.5 fL (80.0-100.0); Mean Platelet Volume 8.5 fL (7.4-10.4); Monocytes # (auto) 0.6 uL; Monocytes % (auto) 6.7 % (0.0-12.0); Neutrophils # (auto) 5.8 uL; Neutrophils % (auto) 64.3 % (37.0-80.0); Platelet Count (auto) 355 10^3/uL (140-450); Red Cell Distribution Width 15.5 % (11.6-16.0)
[2017-03-19 07:25] LABS: INR 1.12 (0.9-1.15); Partial Thromboplastin Time 25.7 sec (22.64-33.71); Prothrombin Time 12.2 sec (9.37-12.3)
[2017-03-19 07:34] LABS: Albumin 2.8 g/dL (3.4-5.0); BUN/Creatinine Ratio 17.6; Bilirubin, Total 0.4 mg/dL (0.2-1.0); Calcium 8.6 mg/dL (8.5-10.1); Magnesium 1.7 mg/dL (1.6-2.6); Potassium 3.1 mmol/L (3.5-5.1); Total Protein 6.2 g/dL (6.4-8.2)
[2017-03-19 09:00] VITALS: BP 158/85
[2017-03-19] MEDS ORDERED: POTASSIUM CHL 20 Meq TABLET PO ONE (09:45)
[2017-03-19] MEDS: cefTRIAXone 1GM/50ML D5W 50 ML IV SCH (10:29)
[2017-03-19] MEDS: LISINOPRIL 10 MG TAB PO SCH (10:30)
[2017-03-19] MEDS: METOPROLOL TARTRATE 50 MG TAB PO SCH ×2 (10:31→22:03)
[2017-03-19] MEDS: ASPirin 81 mg TAB PO SCH (10:33)
[2017-03-19] MEDS: FAMOTIDINE 20 MG TAB PO SCH ×2 (10:33→22:03)
[2017-03-19] MEDS: ALLOPURINOL 100 MG TAB PO SCH (10:33)
[2017-03-19 13:00] VITALS: BP 143/76
[2017-03-19 17:00] VITALS: BP 148/86
[2017-03-19] MEDS ORDERED: WARFARIN SODIUM 2.5 MG TAB PO ONE (17:00)
[2017-03-19 22:00] VITALS: BP 166/94
[2017-03-19] MEDS: ATORVASTATIN 20 MG TAB PO SCH (22:02)
[2017-03-19] MEDS: ACETAMINOPHEN 325 MG TAB PO PRN (22:03)
[2017-03-20] MEDS: InsuLIN REG 1unit/0.01ml Soln (100units/ml) SC SCH ×3 (00:54→11:41)
[2017-03-20 05:00] VITALS: BP 147/91
[2017-03-20] MEDS: ACCU-CHEK COMFORT CURVE STRIP VI SCH ×3 (06:03→12:06)
[2017-03-20 06:49] LABS: Partial Thromboplastin Time 24.2 sec (22.64-33.71)
[2017-03-20 06:50] LABS: INR 1.25 (0.9-1.15); Prothrombin Time 13.7 sec (9.37-12.3)
[2017-03-20 09:00] VITALS: BP 136/81
[2017-03-20] MEDS: cefTRIAXone 1GM/50ML D5W 50 ML IV SCH (09:18)
[2017-03-20] MEDS: ASPirin 81 mg TAB PO SCH (09:27)
[2017-03-20] MEDS: METOPROLOL TARTRATE 50 MG TAB PO SCH (09:31)
[2017-03-20] MEDS: FAMOTIDINE 20 MG TAB PO SCH (09:32)
[2017-03-20] MEDS: LISINOPRIL 10 MG TAB PO SCH (09:35)
[2017-03-20] MEDS: ALLOPURINOL 100 MG TAB PO SCH (09:36)
[2017-03-20 12:48] VITALS: BP 145/92
[2017-03-20 13:30] VITALS: BP 145/92
[2017-03-20] MEDS ORDERED: WARFARIN SODIUM 10 MG TAB PO ONE (17:00)
== END 2017-03-20 14:10 | disposition home or self-care (01) | DRG 69 ==
LOC: TELE-WESTW 19:12
PROVIDERS: ADMIT Family Medicine; ATTEND Internal Medicine
DX: G45.9 Transient cerebral ischemic attack, unspecified (principal); G93.49 Other encephalopathy; N39.0 Urinary tract infection, site not specified; E44.0 Moderate protein-calorie malnutrition; R29.810 Facial weakness; I48.91 Unspecified atrial fibrillation; I67.2 Cerebral atherosclerosis; B96.20 Unspecified Escherichia coli [E. coli] as the cause of diseases classified elsewhere; M10.9 Gout, unspecified; E78.5 Hyperlipidemia, unspecified; I12.9 Hypertensive chronic kidney disease with stage 1 through stage 4 chronic kidney disease, or unspecified chronic kidney disease; E87.6 Hypokalemia; N18.9 Chronic kidney disease, unspecified; E11.22 Type 2 diabetes mellitus with diabetic chronic kidney disease; K59.00 Constipation, unspecified; H02.402 Unspecified ptosis of left eyelid; I25.10 Atherosclerotic heart disease of native coronary artery without angina pectoris; Z95.1 Presence of aortocoronary bypass graft; Z95.0 Presence of cardiac pacemaker; Z79.899 Other long term (current) drug therapy; Z79.82 Long term (current) use of aspirin; Z79.01 Long term (current) use of anticoagulants; Z82.49 Family history of ischemic heart disease and other diseases of the circulatory system; Z88.6 Allergy status to analgesic agent; Z88.0 Allergy status to penicillin; Z88.8 Allergy status to other drugs, medicaments and biological substances; Z68.25 Body mass index [BMI] 25.0-25.9, adult
CPT/HCPCS: 36415; 70450; 71010; 80053; 81001; 82962; 83735; 84484; 85025; 85610; 85730; 87040; 87081; 93886; J0696; J1815

== ENCOUNTER → 2017-05-08 | Outpatient (CLI) | payer OTHER ==
[~2017-05-08] MED LIST changes: -ATOR10TA PO; -INSLANTI SC; +INSUINJ37 SUBCUT; -LISI40TA PO; -NIFE10CA3 PO
[2017-05-08 10:38] LABS: Urine Bilirubin Negative (Negative); Urine Blood 3+ /uL (Negative); Urine Color Yellow (Yellow); Urine Glucose 3+ mg/dL (Normal); Urine Ketone Negative (Negative); Urine Mucus FEW (None Seen); Urine Nitrite POSITIVE (Negative); Urine RBC 112 /hpf (0 - 4); Urine Squamous Epithelial Cell FEW /hpf (<5); Urine Urobilinogen Normal (Negative); Urine pH 5.5 (5.0-8.0)
[2017-05-08 11:06] LABS: BUN/Creatinine Ratio 21.7; Calcium 8.8 mg/dL (8.5-10.1); Potassium 4.3 mmol/L (3.5-5.1)
== END | disposition home or self-care (01) ==
LOC: LAB 09:40
PROVIDERS: ATTEND Internal Medicine
DX: I10 Essential (primary) hypertension (principal); E11.21 Type 2 diabetes mellitus with diabetic nephropathy
CPT/HCPCS: 36415; 80048; 81001; 83036

== ENCOUNTER 2017-06-12 13:51 | Emergency (ER) | payer OTHER ==
[~2017-06-12] VITALS: Ht 170.2 cm; Wt 68.0 kg
[2017-06-12 14:00] VITALS: BP 104/74
[2017-06-12 15:10] LABS: Basophils # (auto) 0.1 uL; Basophils % (auto) 0.8 % (0.0-2.0); CONDITION Y; Eosinophils # (auto) 0.3 uL; Eosinophils % (auto) 2.7 % (0.0-7.0); Hematocrit 40.9 % (36.0-46.0); Hemoglobin 13.6 g/dL (12.2-16.2); Lymphocytes # (auto) 2.4 uL; Lymphocytes % (auto) 24.7 % (10.0-50.0); Mean Corpuscular Hemoglobin 29.7 pg (28.0-32.0); Mean Corpuscular Hgb Conc. 33.3 g/dL (32.0-36.0); Mean Corpuscular Volume 89.2 fL (80.0-100.0); Mean Platelet Volume 8.7 fL (7.4-10.4); Monocytes # (auto) 0.7 uL; Monocytes % (auto) 7.2 % (0.0-12.0); Neutrophils # (auto) 6.4 uL; Neutrophils % (auto) 64.6 % (37.0-80.0); Platelet Count (auto) 258 10^3/uL (140-450); White Blood Cell 9.9 10^3/uL (4.4-10.8)
[2017-06-12 15:26] LABS: INR 1.45 (0.9-1.15); Partial Thromboplastin Time 26.3 sec (22.64-33.71); Prothrombin Time 15.9 sec (9.37-12.3)
[2017-06-12 15:34] LABS: Albumin 3.8 g/dL (3.4-5.0); Alkaline Phosphatase 120 U/L (45-117); Anion Gap 11 (5-15); Aspartate Aminotransferase 18 U/L (15-37); BUN/Creatinine Ratio 23.5; Bilirubin, Total 0.7 mg/dL (0.2-1.0); Blood Urea Nitrogen 31 mg/dL (7-18); Calcium 9.1 mg/dL (8.5-10.1); Carbon Dioxide 23 mmol/L (21-32); Chloride 104 mmol/L (98-107); GFR African American 50 mL/min; GFR Non-African American 41 mL/min; Glucose 203 mg/dL (74-106); Sodium 138 mmol/L (136-145); Total Protein 7.3 g/dL (6.4-8.2)
== END 2017-06-12 17:23 | disposition home or self-care (01) ==
LOC: ER 13:51
DX: R42 Dizziness and giddiness (principal); I48.91 Unspecified atrial fibrillation; I25.10 Atherosclerotic heart disease of native coronary artery without angina pectoris; E11.9 Type 2 diabetes mellitus without complications; E78.5 Hyperlipidemia, unspecified; I10 Essential (primary) hypertension; Z86.73 Personal history of transient ischemic attack (TIA), and cerebral infarction without residual deficits; Z95.0 Presence of cardiac pacemaker; Z90.710 Acquired absence of both cervix and uterus
CPT/HCPCS: 36415; 70450; 71010; 80053; 84484; 85025; 85610; 85730; 93005; 94761

== ENCOUNTER → 2017-07-02 | Outpatient (CLI) | payer OTHER ==
[2017-07-02 11:48] LABS: Urine Bilirubin Negative (Negative); Urine Blood 1+ /uL (Negative); Urine Color Yellow (Yellow); Urine Glucose Normal (Normal); Urine Ketone Negative (Negative); Urine Mucus FEW (None Seen); Urine Nitrite POSITIVE (Negative); Urine RBC 35 /hpf (0 - 4); Urine Squamous Epithelial Cell FEW /hpf (<5); Urine Urobilinogen Normal (Negative)
[2017-07-02 11:50] LABS: Basophils # (auto) 0 uL; Basophils % (auto) 0.4 % (0.0-2.0); Eosinophils # (auto) 0.2 uL; Eosinophils % (auto) 2.6 % (0.0-7.0); Hematocrit 39.5 % (36.0-46.0); Hemoglobin 13.1 g/dL (12.2-16.2); Lymphocytes # (auto) 2.9 uL; Lymphocytes % (auto) 36.4 % (10.0-50.0); Mean Corpuscular Hemoglobin 29.9 pg (28.0-32.0); Mean Corpuscular Hgb Conc. 33.1 g/dL (32.0-36.0); Mean Corpuscular Volume 90.3 fL (80.0-100.0); Mean Platelet Volume 8.3 fL (6.9-10.8); Monocytes # (auto) 0.8 uL; Monocytes % (auto) 9.4 % (0.0-12.0); Neutrophils # (auto) 4.1 uL; Neutrophils % (auto) 51.2 % (37.0-80.0); Nucleated Red Blood Cells % 0.1 %; Platelet Count (auto) 205 10^3/uL (140-450); Red Cell Distribution Width 15.9 % (11.8-14.3); White Blood Cell 8.1 10^3/uL (4.4-10.8)
[2017-07-02 12:18] LABS: Albumin 3.7 g/dL (3.4-5.0); BUN/Creatinine Ratio 23.8; Bilirubin, Total 0.7 mg/dL (0.2-1.0); Calcium 9.3 mg/dL (8.5-10.1); Potassium 4.4 mmol/L (3.5-5.1); Total Protein 7.1 g/dL (6.4-8.2)
== END | disposition home or self-care (01) ==
LOC: LAB 11:02
PROVIDERS: ATTEND Internal Medicine
DX: I10 Essential (primary) hypertension (principal); E78.2 Mixed hyperlipidemia; E11.9 Type 2 diabetes mellitus without complications; I25.10 Atherosclerotic heart disease of native coronary artery without angina pectoris; I48.91 Unspecified atrial fibrillation; Z95.1 Presence of aortocoronary bypass graft
CPT/HCPCS: 36415; 80053; 80061; 81001; 82043; 83036; 84443; 85025

== ENCOUNTER 2017-07-03 15:06 | Inpatient (IN) | payer OTHER ==
[~2017-07-03] VITALS: Ht 170.2 cm; Wt 69.0 kg
[2017-07-03] MEDS ORDERED: SODIUM CHLORIDE 0.9% 1,000 ML IV ONE (15:38)
[2017-07-03 16:15] LABS: Basophils # (auto) 0 uL; Basophils % (auto) 0.3 % (0.0-2.0); Eosinophils # (auto) 0.1 uL; Eosinophils % (auto) 1.2 % (0.0-7.0); Hematocrit 38.7 % (36.0-46.0); Hemoglobin 12.5 g/dL (12.2-16.2); Lymphocytes # (auto) 2.6 uL; Lymphocytes % (auto) 21.3 % (10.0-50.0); Mean Corpuscular Hemoglobin 29.6 pg (28.0-32.0); Mean Corpuscular Hgb Conc. 32.3 g/dL (32.0-36.0); Mean Corpuscular Volume 91.6 fL (80.0-100.0); Mean Platelet Volume 8.7 fL (6.9-10.8); Monocytes # (auto) 0.8 uL; Monocytes % (auto) 6.8 % (0.0-12.0); Neutrophils # (auto) 8.5 uL; Neutrophils % (auto) 70.4 % (37.0-80.0); Nucleated Red Blood Cells % 0.2 %; Platelet Count (auto) 211 10^3/uL (140-450); Red Cell Distribution Width 16.1 % (11.8-14.3); White Blood Cell 12.1 10^3/uL (4.4-10.8)
[2017-07-03 16:26] LABS: Albumin 3.3 g/dL (3.4-5.0); Anion Gap 10 (5-15); Aspartate Aminotransferase 33 U/L (15-37); BUN/Creatinine Ratio 23.2; Blood Urea Nitrogen 33 mg/dL (7-18); Calcium 8.5 mg/dL (8.5-10.1); Carbon Dioxide 20 mmol/L (21-32); Chloride 109 mmol/L (98-107); GFR African American 46 mL/min; GFR Non-African American 38 mL/min; Glucose 301 mg/dL (74-106); Magnesium 1.8 mg/dL (1.6-2.6); Sodium 139 mmol/L (136-145)
[2017-07-03 16:30] LABS: Alkaline Phosphatase 119 U/L (45-117); Bilirubin, Total 0.6 mg/dL (0.2-1.0); Total Protein 6.2 g/dL (6.4-8.2)
[2017-07-03] MEDS ORDERED: ALBUTEROL SULF 2.5 MG/0.5ML(0.5%) NEB SOLN NEB STA (16:35)
[2017-07-03 16:39] LABS: Potassium 5.8 mmol/L (3.5-5.1)
[2017-07-03] MEDS ORDERED: CALCIUM GLUC 4.65meq/50ml D5AE 50 ML IV ONE (16:45)
[2017-07-03] MEDS ORDERED: SODIUM POLYSTYRENE SULF 15GM/60ML SUSP PO ONE (16:45)
[2017-07-03] MEDS ORDERED: SODIUM BICARBONATE 8.4% INJ 50ML SYRINGE IV ONE (16:45)
[2017-07-03] MEDS ORDERED: InsuLIN REG 1unit/0.01ml Soln (100units/ml) IV ONE (16:45)
[2017-07-03] MEDS ORDERED: DEXTROSE (50%) 50ML SYRG IV ONE (16:45)
[2017-07-03] MEDS ORDERED: DOCUSATE SOD 100 MG CAP PO PRN (18:30)
[2017-07-03] MEDS ORDERED: ACETAMINOPHEN 325 MG TAB PO PRN (18:30)
[2017-07-03] MEDS ORDERED: NITROGLYCERIN 0.4 MG SL TAB SL PRN (18:30)
[2017-07-03] MEDS ORDERED: ONDANSETRON HCL 4 MG/2 ML VIAL IV PRN (18:30)
[2017-07-03] MEDS ORDERED: MORPHINE SULF INJ 2 MG/ML SYRINGE 1ML IV PRN ×2 (18:30)
[2017-07-03] MEDS ORDERED: TEMAZEPAM 15 MG CAP PO PRN (18:30)
[2017-07-03] MEDS ORDERED: HYDROcodone-ACET 5/325MG TAB PO PRN (18:30)
[2017-07-03] MEDS ORDERED: FUROSEMIDE 40 MG/4 ML VIAL IV ONE (18:45)
[2017-07-03] MEDS ORDERED: ASPirin-EC 81 mg tab PO ONE (18:45)
[2017-07-03] MEDS ORDERED: LEVOFLOXACIN 250MG 50 ML IV ONE (18:45)
[2017-07-03] MEDS ORDERED: DEXTROSE (50%) 50ML SYRG IV PRN (19:00)
[2017-07-03] MEDS: FAMOTIDINE 20 MG TAB PO SCH (20:17)
[2017-07-03] MEDS: ENOXAPARIN SOD 40 MG/0.4 ML SYRINGE SC SCH (20:18)
[2017-07-03 20:23] LABS: BUN/Creatinine Ratio 22.1; Calcium 8.9 mg/dL (8.5-10.1); Potassium 4.1 mmol/L (3.5-5.1)
[2017-07-03 20:29] LABS: B-Type Natriuretic Peptide 180.5 pg/mL (0-100)
[2017-07-03 20:31] LABS: INR 1.5 (0.9-1.15); Prothrombin Time 16.4 sec (9.37-12.3)
[2017-07-03 20:32] LABS: Temperature: 23.7 C (20.0-25.0)
[2017-07-03 21:00] VITALS: BP 134/73
[2017-07-03 22:00] VITALS: BP 134/73
[2017-07-03] MEDS ORDERED: InsuLIN REG 1unit/0.01ml Soln (100units/ml) SC SCH (22:00)
[2017-07-03] MEDS ORDERED: ATORVASTATIN 20 MG TAB PO SCH (22:00)
[2017-07-03] MEDS: SODIUM CHLOR 0.9% PF (SALINE LOCK) 10ML VIAL IV SCH (22:34)
[2017-07-03] MEDS: ACCU-CHEK COMFORT CURVE STRIP VI SCH (22:34)
[2017-07-04 01:03] LABS: Urine Bilirubin Negative (Negative); Urine Blood 1+ /uL (Negative); Urine Color Straw (Yellow); Urine Glucose 1+ mg/dL (Normal); Urine Ketone Negative (Negative); Urine Nitrite Negative (Negative); Urine RBC 12 /hpf (0 - 4); Urine Squamous Epithelial Cell FEW /hpf (<5); Urine Urobilinogen Normal (Negative)
[2017-07-04 05:03] VITALS: BP 119/66
[2017-07-04] MEDS: ACCU-CHEK COMFORT CURVE STRIP VI SCH ×3 (06:47→17:00)
[2017-07-04] MEDS: InsuLIN REG 1unit/0.01ml Soln (100units/ml) SC SCH ×3 (06:47→17:00)
[2017-07-04] MEDS: SODIUM CHLOR 0.9% PF (SALINE LOCK) 10ML VIAL IV SCH ×2 (06:48→14:00)
[2017-07-04] MEDS: FUROSEMIDE 40 MG/4 ML VIAL IV SCH ×2 (06:48→18:00)
[2017-07-04 06:56] LABS: Basophils # (auto) 0 uL; Basophils % (auto) 0.5 % (0.0-2.0); Eosinophils # (auto) 0.2 uL; Eosinophils % (auto) 2.5 % (0.0-7.0); Hematocrit 37.3 % (36.0-46.0); Hemoglobin 12.5 g/dL (12.2-16.2); Lymphocytes # (auto) 3.5 uL; Lymphocytes % (auto) 37.3 % (10.0-50.0); Mean Corpuscular Hemoglobin 30.1 pg (28.0-32.0); Mean Corpuscular Hgb Conc. 33.5 g/dL (32.0-36.0); Mean Corpuscular Volume 89.9 fL (80.0-100.0); Mean Platelet Volume 8.4 fL (6.9-10.8); Monocytes # (auto) 0.9 uL; Monocytes % (auto) 9.5 % (0.0-12.0); Neutrophils # (auto) 4.7 uL; Neutrophils % (auto) 50.2 % (37.0-80.0); Nucleated Red Blood Cells % 0.2 %; Platelet Count (auto) 205 10^3/uL (140-450); Red Cell Distribution Width 15.9 % (11.8-14.3); White Blood Cell 9.3 10^3/uL (4.4-10.8)
[2017-07-04] MEDS ORDERED: INSULIN DETEMIR(LEVEMIR) 1unit/0.01ml Soln (100units/ml) SC SCH (07:00)
[2017-07-04 07:10] LABS: INR 1.59 (0.9-1.15); Partial Thromboplastin Time 27.8 sec (22.64-33.71); Prothrombin Time 17.4 sec (9.37-12.3)
[2017-07-04 07:11] LABS: Albumin 3.5 g/dL (3.4-5.0); BUN/Creatinine Ratio 24.8; Calcium 9.1 mg/dL (8.5-10.1); Potassium 3.6 mmol/L (3.5-5.1)
[2017-07-04 07:13] LABS: Bilirubin, Total 0.7 mg/dL (0.2-1.0); Total Protein 6.3 g/dL (6.4-8.2)
[2017-07-04 08:00] VITALS: BP 136/75
[2017-07-04] MEDS: Boost Glucose Control 8 Ounces PO SCH ×3 (08:00→18:00)
[2017-07-04 09:00] VITALS: BP 136/75
[2017-07-04] MEDS: ENOXAPARIN SOD 40 MG/0.4 ML SYRINGE SC SCH (09:59)
[2017-07-04] MEDS ORDERED: ASPirin-EC 81 mg tab PO SCH (10:00)
[2017-07-04] MEDS: FAMOTIDINE 20 MG TAB PO SCH (10:00)
[2017-07-04] MEDS ORDERED: LEVOFLOXACIN 250MG 50 ML IV SCH (10:00)
[2017-07-04] MEDS ORDERED: FENOFIBRATE 48MG PO SCH (10:00)
[2017-07-04] MEDS ORDERED: MULTIPLE VITAMIN TAB PO SCH (10:00)
[2017-07-04 13:00] VITALS: BP 112/75
[2017-07-04 17:00] VITALS: BP 134/77
[2017-07-04] MEDS ORDERED: WARFARIN SODIUM 2 MG TAB PO ONE (17:00)
[2017-07-04 17:23] VITALS: BP 134/77
[2017-07-04] MEDS ORDERED: TRAVOPROST 0.004% OP SCH (22:00)
== END 2017-07-04 19:20 | disposition home or self-care (01) | DRG 291 ==
LOC: EDBD 15:06 → ER 15:11 → TELE 15:12 → TELE-EAST 20:30
PROVIDERS: ADMIT Internal Medicine; ATTEND Internal Medicine
DX: I13.0 Hypertensive heart and chronic kidney disease with heart failure and stage 1 through stage 4 chronic kidney disease, or unspecified chronic kidney disease (principal); I50.43 Acute on chronic combined systolic (congestive) and diastolic (congestive) heart failure; E44.0 Moderate protein-calorie malnutrition; D68.69 Other thrombophilia; E10.21 Type 1 diabetes mellitus with diabetic nephropathy; E10.22 Type 1 diabetes mellitus with diabetic chronic kidney disease; N18.3 Chronic kidney disease, stage 3 (moderate); I48.92 Unspecified atrial flutter; G45.9 Transient cerebral ischemic attack, unspecified; N39.0 Urinary tract infection, site not specified; E87.5 Hyperkalemia; R55 Syncope and collapse; E78.5 Hyperlipidemia, unspecified; I25.10 Atherosclerotic heart disease of native coronary artery without angina pectoris; I48.91 Unspecified atrial fibrillation; Z88.0 Allergy status to penicillin; Z88.8 Allergy status to other drugs, medicaments and biological substances; Z86.73 Personal history of transient ischemic attack (TIA), and cerebral infarction without residual deficits; Z90.710 Acquired absence of both cervix and uterus; Z95.1 Presence of aortocoronary bypass graft; Z95.0 Presence of cardiac pacemaker; Z79.4 Long term (current) use of insulin; Z79.82 Long term (current) use of aspirin; Z79.899 Other long term (current) drug therapy; Z83.3 Family history of diabetes mellitus
CPT/HCPCS: 36415; 70450; 80048; 80053; 81001; 82962; 83036; 83735; 83880; 84443; 84484; 85025; 85610; 85730; 87086; 92610; 93005; 93886; 96361; 96374; 96375; J0610; J1815